=== PATIENT | female | born 1970 | race Caucasian/White ===

== ENCOUNTER 2018-02-10 13:15 | Inpatient (IN) | payer OTHER ==
--- NOTE | 2018-02-10 14:14 | ER Document Report ---
ED Medical Screen (RME) - General Chief Complaint: Upper Abdominal Pain Stated Complaint: STOMACH PAIN Time Seen by Provider: 02/10/18 14:05 Mode of Arrival: Ambulatory Information source: Patient Notes: 47-year-old female history of hysterectomy presents with complaints of right upper quadrant abdominal pain patient notes for the past 2 days she has been having pain. denies nay fevers or chills. denies any diarrhea I have greeted and performed a rapid initial assessment of this patient. A comprehensive ED assessment and evaluation of the patient, analysis of test results and completion of the medical decision making process will be conducted by additional ED providers. PHYSICAL EXAMINATION: GENERAL: Well-appearing, well-nourished and in no acute distress. HEAD: Atraumatic, normocephalic. EYES: Pupils equal round extraocular movements intact, conjunctiva are normal. ENT: Nares patent NECK: Normal range of motion LUNGS: No respiratory distress Musculoskeletal: Normal range of motion NEUROLOGICAL: Normal speech, normal gait. PSYCH: Normal mood, normal affect. SKIN: Warm, Dry, normal turgor, no rashes or lesions noted. TRAVEL OUTSIDE OF THE [place] IN LAST 30 DAYS: No - Related Data Allergies/Adverse Reactions: No Known Allergies Allergy (Verified 02/10/18 13:17) Past Medical History - Social History Frequency of alcohol use: Rare Drug Abuse: None - Past Medical History Cardiac Medical History: Reports: Hx Hypercholesterolemia, Hx Hypertension Endocrine Medical History: Reports: Hx Hypothyroidism Renal/ Medical History: Denies: Hx Peritoneal Dialysis Skin Medical History: Reports Hx Psoriasis Physical Exam - Vital signs Vitals: Temp Pulse Resp BP Pulse Ox 99.5 F 107 H 22 H 124/70 97 02/10/18 13:23 02/10/18 13:23 02/10/18 13:23 02/10/18 13:23 02/10/18 13:23 Course - Vital Signs Vital signs: Temp Pulse Resp BP Pulse Ox 99.5 F 107 H 22 H 124/70 97 02/10/18 13:23 02/10/18 13:23 02/10/18 13:23 02/10/18 13:23 02/10/18 13:23 Doctor's Discharge - Discharge Referrals: MICHAEL HOUSTON DO [Primary Care Provider] - Follow up as needed
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
[2018-02-10] MEDS ORDERED: NORMAL SALINE 1000 ML 500 ML IV ONE (15:04)
[2018-02-10 15:15] LABS: ABSOLUTE BASOPHILS # (AUTO) 0.2 10^3/uL (0.0-0.2); ABSOLUTE LYMPHOCYTES (AUTO) 2.8 10^3/uL (0.5-4.7); ABSOLUTE NEUT (AUTO) 13.8 10^3/uL (1.7-8.2); BASOPHILS % (AUTO) 0.9 % (0-2); EOSINOPHILS % (AUTO) 0.1 % (0-6); HEMATOCRIT 44.3 % (36.0-47.0); HEMOGLOBIN 14.9 g/dL (12.0-15.5); LYMPHOCYTES % (AUTO) 15.6 % (13-45); MEAN CORPUSCULAR HEMOGLOBIN 29.6 pg (27.0-33.4); MEAN CORPUSCULAR HGB CONC 33.7 g/dL (32.0-36.0); MEAN CORPUSCULAR VOLUME 88 fl (80-97); MONOCYTES % (AUTO) 5.4 % (3-13); PLATELET COUNT 325 10^3/uL (150-450); RED BLOOD COUNT 5.06 10^6/uL (3.72-5.28); RED CELL DISTRIBUTION WIDTH 13.2 % (11.5-14.0); TOTAL CELLS COUNTED % (AUTO) 100 %; WHITE BLOOD COUNT 17.7 10^3/uL (4.0-10.5)
[2018-02-10] MEDS ORDERED: DEXAMETHASONE SOD PHOS INJ 10 MG/1 ML VIAL IV ONE (15:18)
[2018-02-10] MEDS ORDERED: CEFTRIAXONE INJ 1000 MG VIAL IV ONE (15:18)
[2018-02-10 15:33] LABS: ALANINE AMINOTRANSFERASE 25 U/L (9-52); ALBUMIN 4.1 g/dL (3.5-5.0); ALKALINE PHOSPHATASE 76 U/L (38-126); ANION GAP 14 (5-19); ASPARTATE AMINO TRANSFERASE 16 U/L (14-36); BILIRUBIN,DIRECT 0.4 mg/dL (0.0-0.4); BILIRUBIN,TOTAL 0.9 mg/dL (0.2-1.3); BLOOD UREA NITROGEN 17 mg/dL (7-20); CALCIUM 9.9 mg/dL (8.4-10.2); CARBON DIOXIDE 28 mmol/L (22-30); CHLORIDE 99 mmol/L (98-107); GLUCOSE 110 mg/dL (75-110); LIPASE 95.9 U/L (23-300); POTASSIUM 4.1 mmol/L (3.6-5.0); SODIUM 140.6 mmol/L (137-145); TOTAL PROTEIN 7.3 g/dL (6.3-8.2)
[2018-02-10 16:09] LABS: APPEARANCE,URINE SLIGHTLY-CLOUDY; BILIRUBIN,URINE NEGATIVE (NEGATIVE); COLOR,URINE YELLOW; GLUCOSE, URINE NEGATIVE (NEGATIVE); KETONES,URINE NEGATIVE (NEGATIVE); LEUKOCYTE ESTERASE,URINE NEGATIVE (NEGATIVE); NITRITE,URINE NEGATIVE (NEGATIVE); PROTEIN,URINE NEGATIVE (NEGATIVE); URINE SPECIFIC GRAVITY 1.024; UROBILINOGEN,URINE NEGATIVE mg/dL (<2.0)
[2018-02-10] MEDS ORDERED: LEVOFLOXACIN 750 MG/D5W RTU 750 MG/150 ML RTUPB IV ONE (16:37)
[2018-02-10] MEDS ORDERED: MORPHINE SULFATE 10 MG/ML INJ IV ONE (16:38)
--- NOTE | 2018-02-10 16:46 | RADIOLOGY REPORT (SQ) ---
EXAM DESCRIPTION: CT ABD/PELVIS WITH IV ONLY COMPLETED DATE/TIME: 02/10/2018 4:13 pm REASON FOR STUDY: epigstric ruq pain COMPARISON: None. TECHNIQUE: CT scan of the abdomen and pelvis performed using helical scanning technique with dynamic intravenous contrast injection. No oral contrast. Images reviewed with lung, soft tissue, and bone windows. Reconstructed coronal and sagittal MPR images reviewed. Delayed images for evaluation of the urinary system also acquired. All images stored on PACS. All CT scanners at this facility use dose modulation, iterative reconstruction, and/or weight based d osing when appropriate to reduce radiation dose to as low as reasonably achievable (ALARA). [facility]: Dose Right [facility]: CareDose [facility]: Dose Right [facility]: Teradose 4D [facility]: LOANZ CONTRAST TYPE AND DOSE: contrast/concentration: Isovue 370.00 mg/ml; Total Contrast Delivered: 98.0 ml; Total Saline Delivered: 40.0 ml RENAL FUNCTION: Creatinine -0.7 BUN=17 RADIATION DOSE: CT Rad equipment meets quality standard of care and radiation dose reduction techniq ues were employed. CTDIvol: 21.1 mGy. DLP: 2608 mGy-cm.. LIMITATIONS: None. FINDINGS: LOWER CHEST: No significant findings. No nodules or infiltrates. LIVER: Normal size. No masses. No dilated ducts. The hepatic and portal veins are patent. SPLEEN: Normal size. No focal lesions. PANCREAS: No masses. No significant calcifications. No adjacent inflammation or peripancreatic fluid collections. Pancreatic duct not dilated. GALLBLADDER: Prior cholecystectomy. ADRENAL GLANDS: No significant masses or asymmetry. RIGHT KIDNEY AND URETER: A heterogenous enhancing fairly well circumscribed 2.4 cm x 2.0 cm mass in the lower pole of the right kidney, Axial image 56, series 3 and Coronal image 44, series 601. Foci of fat are identified within the mass. Considerations for this finding includes a possible angiomyol ipoma, as well as other etiologies. A few very small hypoattenuated right renal lesions may be on a benign basis. No hydronephrosis or hydroureter. LEFT KIDNEY AND URETER: No solid masses. No significant calcifications. No hydronephrosis or hydr oureter. AORTA AND VESSELS: No aneurysm. No dissection. Renal arteries, SMA, celiac without stenosis. RETROPERITONEUM: No retroperitoneal adenopathy, hemorrhage or masses. BOWEL AND PERITONEAL CAVITY: A few scattered colonic diverticulae. Significant haziness to the fat and linear stranding surrounding the hepatic flexure-proximal transverse colon. The wall of the colo n in this area is thickened. Considerations for this finding includes diverticulitis. The possibili ty of other etiology is not entirely excluded. No evidence of invasion or infiltratatiojn of the surr ounding structures. No free fluid. APPENDIX: Normal. PELVIS: Small hypoattenuated structures in the bilateral adnexal regions, may represent ovarian foll icles. No free fluid. Normal bladder. ABDOMINAL WALL: No masses. No hernias. BONES: Marked degenerative disc disease at L3-4. Slight Grade 1 anterolisthesis of L3 on L4. OTHER: Small hiatal hernia. IMPRESSION: 1 Colonic diverticulae. Fairly extensive linear soft tissue stranding and haziness surr ound the fat of the hepatic flexure -proximal transverse colon, these fndings may represent phlegmon. Considerations for these findings include colonic diverticulitis. Correlation and follow-up examin ation after treatment to document for interval resolution. 2. A heterogenous enhancing fairly well-circumscribed enhancing mass in the right kidney contains se veral foci of fat. Considerations for this finding includes possible angiomyolipoma. Correlation to any prior examinations is first suggested, if no old films are available, MRI Renal examination with without. 3. Marked degenerative disc disease at L3-L4. Slight Grade 1 anterolisthesis of L3 on L4. 4. Prior cholecystectomy. 5. Small hiatal hernia. COMMENT: 1. The results of this examination were discussed with emergency department provider on 07/2018 at 16:35 hours. TECHNICAL DOCUMENTATION: JOB ID: [id number] Quality ID # [id number]: Final reports with documentation of one or more dose reduction techniques (e.g., Au tomated exposure control, adjustment of the mA and/or kV according to patient size, use of iterative reconstruction technique) 2010 [employer]- All Rights Reserved Reading location - IP/workstation name: [email or web address]
[2018-02-10] MEDS ORDERED: FENTANYL CITRATE INJ/PF 100 MCG/2 ML AMPUL IV ONE (17:15)
[2018-02-10] MEDS ORDERED: ALBUTEROL SULFATE 0.083% NEB 2.5 MG/3 ML AMPUL NEB PRN (17:56)
[2018-02-10] MEDS ORDERED: ACETAMINOPHEN 325 MG TABLET PO PRN (17:56)
[2018-02-10] MEDS ORDERED: ONDANSETRON 4 MG TAB.RAPDIS PO PRN (17:56)
[2018-02-10] MEDS ORDERED: ONDANSETRON HCL INJ/PF 4 MG/2 ML SDV IV PRN (17:56)
[2018-02-10] MEDS ORDERED: FENTANYL CITRATE INJ/PF 100 MCG/2 ML AMPUL IV PRN (18:09)
--- NOTE | 2018-02-10 18:10 | PDOC H&P ---
History of Present Illness Admission Date/PCP: February 10, 2018 MICHAEL HOUSTON DO Patient complains of: Abdominal pain and nausea History of Present Illness: MALIA ROCHE is a 47 year old female with past medical history of Hypertension Psoriatic arthritis Rheumatoid arthritis Hypertension Past surgical history Cholecystectomy in 2009 Knee and ankle surgery Outpatient medications: Humira Verapamil extended release 180 mg daily Valsartan/HCTZ 320/25 mg daily Celebrex as needed She presented to the emergency room on February 10 complaining of nausea and periumbilical abdominal pain that radiated to the right upper quadrant. This started yesterday. The patient also reports some chills. No vomiting no fever no diarrhea no dysuria no hematochezia or melena. CAT scan of the abdomen and pelvis with IV contrast showed a heterogenous enhancing fairly well-circumscribed 2.4 x 2 cm mass in the lower pole of the right kidney. It also showed fairly extensive linear soft tissue stranding and haziness surrounding the fat of the hepatic flexure around the proximal transverse colon representing a phlegmon and concerning for possible colonic diverticulitis. A surgical consult was requested. Dr. Renee reviewed the CAT scans and does not think any urgent surgical intervention is required. He will be seeing the patient. Past Medical History Cardiac Medical History: Reports: Hyperlipidema, Hypertension Skin Medical History: Reports: Psoriasis Past Surgical History Past Surgical History: Reports: Cholecystectomy, Orthopedic Surgery - Multiple knee surgeries Social History Information Source: Patient Lives with: Spouse/Significant other Smoking Status: Never Smoker Frequency of Alcohol Use: Social Hx Recreational Drug Use: No - Advance Directive Resuscitation Status: Full Code Family History Family History: Arthritis, DM, Hypertension, Malignancy Parental Family History Reviewed: Yes Children Family History Reviewed: Yes Sibling(s) Family History Reviewed.: Yes Medication/Allergy Home Medications: Levothyroxine Sodium [Synthroid 50 Mcg Tablet] mcg PO DAILY 07/07/12 Meloxicam [Mobic 7.5 Mg Tablet] 7.5 mg PO DAILY 07/07/12 Metoprolol Succinate [Toprol Xl 50 mg Tab.sr] 50 mg PO DAILY 07/07/12 Simvastatin [Zocor 20 mg Tablet] 20 mg PO QHS 07/07/12 Ustekinumab [Stelara] SQ 07/07/12 Valsartan/Hydrochlorothiazide [Diovan Hct 160-12.5 mg Tab] 1 tab PO DAILY Allergies/Adverse Reactions: No Known Allergies Allergy (Verified 02/10/18 13:17) Review of Systems Constitutional: PRESENT: chills. ABSENT: fever(s) Eyes: ABSENT: visual disturbances Ears: ABSENT: hearing changes Nose, Mouth, and Throat: ABSENT: sore throat Cardiovascular: ABSENT: chest pain, edema, palpitations Gastrointestinal: PRESENT: abdominal pain, nausea. ABSENT: diarrhea, vomiting Musculoskeletal: ABSENT: joint swelling Integumentary: ABSENT: rash Neurological: ABSENT: focal weakness Psychiatric: ABSENT: hallucinations Endocrine: ABSENT: heat intolerance Hematologic/Lymphatic: ABSENT: easy bleeding Allergic/Immunologic: ABSENT: seasonal rhinorrhea Physical Exam Vital Signs: Temp Pulse Resp BP Pulse Ox 99.5 F 107 H 22 H 124/70 97 02/10/18 13:23 02/10/18 13:23 02/10/18 13:23 02/10/18 13:23 02/10/18 13:23 Intake & Output 02/09/18 02/10/18 02/11/18 06:59 06:59 06:59 Weight 137.5 kg General appearance: PRESENT: obese Head exam: PRESENT: normocephalic Eye exam: PRESENT: PERRLA. ABSENT: scleral icterus Ear exam: PRESENT: normal external ear exam Mouth exam: PRESENT: moist Neck exam: ABSENT: tracheal deviation Respiratory exam: PRESENT: symmetrical, unlabored. ABSENT: crackles, wheezes Cardiovascular exam: PRESENT: RRR. ABSENT: systolic murmur GI/Abdominal exam: PRESENT: normal bowel sounds - Right upper quadrant tenderness, tenderness Rectal exam: PRESENT: deferred Gentrourinary exam: ABSENT: indwelling catheter Extremities exam: ABSENT: calf tenderness, pedal edema Musculoskeletal exam: PRESENT: normal inspection Neurological exam: PRESENT: alert, awake, oriented to person, oriented to place , oriented to time, oriented to situation Psychiatric exam: PRESENT: appropriate affect Skin exam: ABSENT: rash Results Laboratory Results: 02/10/18 14:41 02/10/18 14:41 02/10/18 02/10/18 02/10/18 14:41 14:41 14:41 WBC 17.7 H RBC 5.06 Hgb 14.9 Hct 44.3 MCV 88 MCH 29.6 MCHC 33.7 RDW 13.2 Plt Count 325 Seg Neutrophils % 78.0 Lymphocytes % 15.6 Monocytes % 5.4 Eosinophils % 0.1 Basophils % 0.9 Absolute Neutrophils 13.8 H Absolute Lymphocytes 2.8 Absolute Monocytes 1.0 Absolute Eosinophils 0.0 Absolute Basophils 0.2 Sodium 140.6 Potassium 4.1 Chloride 99 Carbon Dioxide 28 Anion Gap 14 BUN 17 Creatinine 0.84 Est GFR ( Amer) > 60 Est GFR (Non-Af Amer) > 60 Glucose 110 Calcium 9.9 Total Bilirubin 0.9 AST 16 ALT 25 Alkaline Phosphatase 76 Total Protein 7.3 Albumin 4.1 Lipase 95.9 Serum HCG, Qual NEGATIVE Urine Color Urine Appearance Urine pH Ur Specific [place] Urine Protein Urine Glucose (UA) Urine Ketones Urine Blood Urine Nitrite Ur Leukocyte Esterase Urine WBC (Auto) Urine RBC (Auto) 02/10/18 15:37 WBC RBC Hgb Hct MCV MCH MCHC RDW Plt Count Seg Neutrophils % Lymphocytes % Monocytes % Eosinophils % Basophils % Absolute Neutrophils Absolute Lymphocytes Absolute Monocytes Absolute Eosinophils Absolute Basophils Sodium Potassium Chloride Carbon Dioxide Anion Gap BUN Creatinine Est GFR ( Amer) Est GFR (Non-Af Amer) Glucose Calcium Total Bilirubin AST ALT Alkaline Phosphatase Total Protein Albumin Lipase Serum HCG, Qual Urine Color YELLOW Urine Appearance SLIGHTLY-CLOUDY Urine pH 5.0 Ur Specific [place] 1.024 Urine Protein NEGATIVE Urine Glucose (UA) NEGATIVE Urine Ketones NEGATIVE Urine Blood SMALL H Urine Nitrite NEGATIVE Ur Leukocyte Esterase NEGATIVE Urine WBC (Auto) 2 Urine RBC (Auto) 2 Impressions: Abdomen/Pelvis CT 02/10/18 15:29 IMPRESSION: 1 Colonic diverticulae. Fairly extensive linear soft tissue stranding and haziness surround the fat of the hepatic flexure -proximal transverse colon, these fndings may represent phlegmon. Considerations for these findings include colonic diverticulitis. Correlation and follow-up examination after treatment to document for interval resolution. 2. A heterogenous enhancing fairly well-circumscribed enhancing mass in the right kidney contains several foci of fat. Considerations for this finding includes possible angiomyolipoma. Correlation to any prior examinations is first suggested, if no old films are available, MRI Renal examination with without. 3. Marked degenerative disc disease at L3-L4. Slight Grade 1 anterolisthesis of L3 on L4. 4. Prior cholecystectomy. 5. Small hiatal hernia. Assessment & Plan - Diagnosis (1) Acute diverticulitis Is this a current diagnosis for this admission?: Yes Plan: Monitor closely due to risk for decompensation. IV Flagyl and Levaquin. Pain control and antiemetics. Clear liquid diet. (2) Hypertension Is this a current diagnosis for this admission?: Yes Plan: Resume home medications including valsartan and verapamil. Hydrochlorothiazide will be on hold. Monitor blood pressure. (3) Psoriatic arthritis Is this a current diagnosis for this admission?: Yes Plan: Hold Humira (4) Rheumatoid arthritis Is this a current diagnosis for this admission?: Yes Plan: prm analgesics - Time Time Spent: 50 to 70 Minutes
[2018-02-10] MEDS: OXYCODONE-ACETAMINOPHEN 5-325 MG TABLET PO PRN ×2 (19:26→23:51)
[2018-02-10] MEDS ORDERED: ENOXAPARIN SODIUM INJ 40 MG/0.4 ML DISP.SYRIN SUBCUT ONE (20:00)
--- NOTE | 2018-02-10 20:07 | PDOC CONSULTATION ---
Consultation Consult Date: 02/10/18 Consult reason:: Abdominal pain History of Present Illness Admission Date/PCP: 02/10/18 18:30 MICHAEL HOUSTON DO History of Present Illness: MALIA ROCHE is a 47 year old female Presents emergency department complaining approximately 18 hour history of abdominal pain after eating last p.m. Patient denies history of previous episodes, history of trauma or any history of gastrointestinal problems. She is 7 years status post laparoscopic cholecystectomy by also surgical clinic. Patient developed persisting abdominal pain localized into the right upper quadrant. She was seen in the emergency department earlier today where she was found to have localized tenderness, and a leukocytosis with a left shift. She had a CT scan of the abdomen and pelvis with IV no oral contrast which showed inflammation of the right upper quadrant surrounding the proximal transverse colon. No evidence of free air or free fluid phlegmon or any other significant abnormal pathology. Surgery was consulted. The patient was admitted to the hospitalist service for further treatment Past Medical History Past Medical History: Obesity Cardiac Medical History: Reports: Hyperlipidema, Hypertension Endocrine Medical History: Reports: Hypothyroidism Skin Medical History: Reports: Psoriasis Past Surgical History Past Surgical History: Reports: Cholecystectomy, Orthopedic Surgery - Multiple knee surgeries Social History Lives with: Spouse/Significant other Smoking Status: Never Smoker Frequency of Alcohol Use: Social Hx Recreational Drug Use: No Hx Prescription Drug Abuse: No - Advance Directive Resuscitation Status: Full Code Family History Family History: Arthritis, DM, Hypertension, Malignancy Parental Family History Reviewed: Yes Children Family History Reviewed: Yes Sibling(s) Family History Reviewed.: Yes Medication/Allergy Home Medications: Adalimumab [Humira] 40 mg SQ ASDIR PRN 02/10/18 Medroxyprogesterone Acet [Provera 10 Mg Tablet] 10 mg PO DAILY 02/10/18 Valsartan/Hydrochlorothiazide [Diovan Hct 320-25 mg Tablet] 1 each PO DAILY 07/20 Verapamil HCl [Verapamil ER] 180 mg PO DAILY 02/10/18 Allergies/Adverse Reactions: No Known Allergies Allergy (Verified 02/10/18 13:17) Review of Systems Constitutional: ABSENT: chills, fever(s), headache(s), weight gain, weight loss Eyes: ABSENT: visual disturbances Cardiovascular: ABSENT: chest pain, dyspnea on exertion, edema, orthropnea, palpitations Gastrointestinal: PRESENT: as per HPI. ABSENT: abdominal pain, constipation, diarrhea, hematemesis, hematochezia, nausea, vomiting Genitourinary: ABSENT: dysuria, hematuria Physical Exam Vital Signs: Temp Pulse Resp BP Pulse Ox 99.6 F 90 20 137/81 H 99 02/10/18 18:10 02/10/18 18:10 02/10/18 18:10 02/10/18 18:10 02/10/18 18:10 General appearance: PRESENT: mild distress Head exam: PRESENT: normocephalic Eye exam: PRESENT: EOMI Mouth exam: PRESENT: dry mucosa Respiratory exam: PRESENT: clear to auscultation magdy Cardiovascular exam: PRESENT: RRR Pulses: PRESENT: normal carotid pulses GI/Abdominal exam: PRESENT: other - Tender right upper quadrant with mild to moderate guarding. The abdomen is soft there is no obvious hernias. Exam limited due to obesity. Neurological exam: PRESENT: alert, awake, oriented to person, oriented to place Psychiatric exam: PRESENT: anxious Results Impressions: Abdomen/Pelvis CT 02/10/18 15:29 IMPRESSION: 1 Colonic diverticulae. Fairly extensive linear soft tissue stranding and haziness surround the fat of the hepatic flexure -proximal transverse colon, these fndings may represent phlegmon. Considerations for these findings include colonic diverticulitis. Correlation and follow-up examination after treatment to document for interval resolution. 2. A heterogenous enhancing fairly well-circumscribed enhancing mass in the right kidney contains several foci of fat. Considerations for this finding includes possible angiomyolipoma. Correlation to any prior examinations is first suggested, if no old films are available, MRI Renal examination with without. 3. Marked degenerative disc disease at L3-L4. Slight Grade 1 anterolisthesis of L3 on L4. 4. Prior cholecystectomy. 5. Small hiatal hernia. Assessment & Plan - Diagnosis (1) Acute diverticulitis Is this a current diagnosis for this admission?: Yes Plan: The clinical history physical exam findings laboratory value and CT scan, although limited due to absence of oral contrast, most consistent with focal amatory process involving the proximal transverse colon. Acute diverticulitis is statistically most likely etiology but other sources such as inflammatory bowel disease , occult neoplasm, localized contained colonic perforation or other organ inflammation are also possible though less likely Commendations: 1. No clinical indication for operative intervention at this time. 2. Would hold off on clear liquids 3. Agree with intravenous antibiotics. Clinical condition improves, recommend transferring to p.o. antibiotics, then follow-up as an outpatient including complete colonoscopy. If patient does not improve, then a repeat CT scan with oral contrast may be of value. 4. The above assessment and recommendations discussed with patient and her mother. They expressed her consent to proceed. (2) Morbid obesity with BMI of 45.0-49.9, adult Is this a current diagnosis for this admission?: Yes - Time Time Spent: 50 to 70 Minutes Smoking Cessation Education: 3 to 10 minutes Medications reviewed and adjusted accordingly: Yes Anticipated discharge: Home - Inpatient Certification Based on my medical assessment, after consideration of the patient's comorbidities, presenting symptoms, or acuity I expect that the services needed warrant INPATIENT care.: Yes I certify that my determination is in accordance with my understanding of Medicare's requirements for reasonable and necessary INPATIENT services [42 CFR 412.3e].: Yes Medical Necessity: Need For IV Fluids, Need for Pain Control, Need for IV Antibiotics
[2018-02-10] MEDS: RINGERS SOLUTION,LACTATED 1,000 ML IV PRN (20:43)
[2018-02-10] MEDS: METRONIDAZOLE 500 MG/NS RTU 100 ML IV SCH ×2 (20:44→23:51)
[2018-02-10] MEDS: PANTOPRAZOLE SODIUM 40 MG VIAL IV SCH (23:51)
[2018-02-11] MEDS: METRONIDAZOLE 500 MG/NS RTU 100 ML IV SCH ×3 (05:53→18:59)
[2018-02-11 07:03] LABS: ABSOLUTE BASOPHILS # (AUTO) 0.1 10^3/uL (0.0-0.2); ABSOLUTE EOSINOPHILS # (AUTO) 0.1 10^3/uL (0.0-0.6); ABSOLUTE LYMPHOCYTES (AUTO) 3.6 10^3/uL (0.5-4.7); ABSOLUTE MONOCYTES (AUTO) 1.1 10^3/uL (0.1-1.4); ABSOLUTE NEUT (AUTO) 8.1 10^3/uL (1.7-8.2); BASOPHILS % (AUTO) 0.7 % (0-2); LYMPHOCYTES % (AUTO) 27.8 % (13-45); MEAN CORPUSCULAR HEMOGLOBIN 29.9 pg (27.0-33.4); MEAN CORPUSCULAR HGB CONC 34.4 g/dL (32.0-36.0); MEAN CORPUSCULAR VOLUME 87 fl (80-97); MONOCYTES % (AUTO) 8.3 % (3-13); PLATELET COUNT 246 10^3/uL (150-450); RED BLOOD COUNT 4.13 10^6/uL (3.72-5.28); RED CELL DISTRIBUTION WIDTH 13.2 % (11.5-14.0); SEGMENTED NEUTROPHILS % (AUTO) 62.2 % (42-78); TOTAL CELLS COUNTED % (AUTO) 100 %
[2018-02-11 07:23] LABS: ALANINE AMINOTRANSFERASE 32 U/L (9-52); ALKALINE PHOSPHATASE 61 U/L (38-126); ANION GAP 10 (5-19); ASPARTATE AMINO TRANSFERASE 26 U/L (14-36); BILIRUBIN,DIRECT 0.6 mg/dL (0.0-0.4); BILIRUBIN,TOTAL 1.5 mg/dL (0.2-1.3); BLOOD UREA NITROGEN 14 mg/dL (7-20); CALCIUM 8.7 mg/dL (8.4-10.2); CARBON DIOXIDE 28 mmol/L (22-30); CHLORIDE 102 mmol/L (98-107); CHOLESTEROL 144.46 mg/dL (0-200); GLUCOSE 108 mg/dL (75-110); PHOSPHORUS 4.6 mg/dL (2.5-4.5); POTASSIUM 3.6 mmol/L (3.6-5.0); SODIUM 139.8 mmol/L (137-145); TOTAL PROTEIN 5.7 g/dL (6.3-8.2); TRIGLYCERIDES 65 mg/dL (<150)
[2018-02-11 07:25] LABS: HEMOGLOBIN 12.4 g/dL (12.0-15.5)
[2018-02-11 07:34] LABS: DIRECT LDL 75 mg/dL (<100)
[2018-02-11] MEDS ORDERED: DEXTROSE 40% GEL 15 GM TUBE PO PRN ×2 (07:45)
[2018-02-11] MEDS ORDERED: GLUCAGON,HUMAN RECOMB 1 MG INJ SUBCUT PRN (07:45)
[2018-02-11] MEDS ORDERED: DEXTROSE 50%-WATER 25 GM/50 ML DISP.SYRIN IV PRN ×2 (07:45)
[2018-02-11] MEDS ORDERED: VALSARTAN 160 MG TABLET PO SCH (10:00)
[2018-02-11] MEDS: LACTOBACILLUS ACIDOPHILUS 250 MG TAB PO SCH ×2 (10:14→18:59)
[2018-02-11] MEDS: ENOXAPARIN SODIUM INJ 40 MG/0.4 ML DISP.SYRIN SUBCUT SCH (10:14)
[2018-02-11] MEDS: PANTOPRAZOLE SODIUM 40 MG VIAL IV SCH ×2 (10:15→22:03)
[2018-02-11] MEDS: VERAPAMIL HCL 180 MG TABLET.SA PO SCH (10:15)
--- NOTE | 2018-02-11 12:11 | PDOC PROGRESS REPORT ---
Subjective Progress Note for:: 02/11/18 Subjective:: Pain has decreased but still very much present. No nausea or vomiting. Reason For Visit: ACUTE DIVERTICULITIS Physical Exam Vital Signs: Temp Pulse Resp BP Pulse Ox 98.0 F 74 16 119/58 L 97 02/11/18 07:27 02/11/18 07:27 02/11/18 07:27 02/11/18 07:27 02/11/18 07:27 Intake & Output 02/10/18 02/11/18 02/12/18 06:59 06:59 06:59 Weight 139.1 kg General appearance: PRESENT: no acute distress, cooperative Respiratory exam: PRESENT: clear to auscultation magdy Cardiovascular exam: PRESENT: RRR GI/Abdominal exam: PRESENT: other - Soft, moderate tenderness to palpation across her right upper abdomen without peritoneal signs. Results Laboratory Results: 02/11/18 05:46 02/11/18 05:46 02/11/18 02/11/18 02/11/18 05:46 05:46 05:46 WBC 13.0 H RBC 4.13 Hgb 12.4 D Hct 36.0 MCV 87 MCH 29.9 MCHC 34.4 RDW 13.2 Plt Count 246 Seg Neutrophils % 62.2 Lymphocytes % 27.8 Monocytes % 8.3 Eosinophils % 1.0 Basophils % 0.7 Absolute Neutrophils 8.1 Absolute Lymphocytes 3.6 Absolute Monocytes 1.1 Absolute Eosinophils 0.1 Absolute Basophils 0.1 Sodium 139.8 Potassium 3.6 Chloride 102 Carbon Dioxide 28 Anion Gap 10 BUN 14 Creatinine 0.74 Est GFR ( Amer) > 60 Est GFR (Non-Af Amer) > 60 Glucose 108 Calcium 8.7 Phosphorus 4.6 H Magnesium 1.9 Total Bilirubin 1.5 H AST 26 ALT 32 Alkaline Phosphatase 61 Total Protein 5.7 L Albumin 3.0 L Triglycerides 65 Cholesterol 144.46 LDL Cholesterol Direct 75 VLDL Cholesterol 13.0 HDL Cholesterol 50 TSH 2.03 Impressions: Abdomen/Pelvis CT 02/10/18 15:29 IMPRESSION: 1 Colonic diverticulae. Fairly extensive linear soft tissue stranding and haziness surround the fat of the hepatic flexure -proximal transverse colon, these fndings may represent phlegmon. Considerations for these findings include colonic diverticulitis. Correlation and follow-up examination after treatment to document for interval resolution. 2. A heterogenous enhancing fairly well-circumscribed enhancing mass in the right kidney contains several foci of fat. Considerations for this finding includes possible angiomyolipoma. Correlation to any prior examinations is first suggested, if no old films are available, MRI Renal examination with without. 3. Marked degenerative disc disease at L3-L4. Slight Grade 1 anterolisthesis of L3 on L4. 4. Prior cholecystectomy. 5. Small hiatal hernia. Assessment & Plan - Diagnosis (1) Acute diverticulitis Is this a current diagnosis for this admission?: Yes Plan: Inflammatory process involving the right transverse colon. Unclear etiology. Continue IV antibiotics. Appears to be improving. Keep n.p.o. until the tenderness has markedly improved. Patient will need a colonoscopy once the inflammatory process has resolved. Recommend that be done as an outpatient provided the patient does well during this hospital stay.
--- NOTE | 2018-02-11 13:51 | PDOC PROGRESS REPORT ---
Subjective Progress Note for:: 02/11/18 Subjective:: 47-year-old female with a history of hypertension morbid obesity psoriatic and rheumatoid arthritis on Humira. She presented to the hospital with abdominal pain nausea and vomiting. CAT scan showed inflammatory changes in the hepatic flexure of the colon concerning for diverticulitis. There was no abscess. The patient was evaluated by the surgical service and they recommended n.p.o. and IV antibiotics. She continues to have pain and tenderness in the area. Reason For Visit: ACUTE DIVERTICULITIS Physical Exam Vital Signs: Temp Pulse Resp BP Pulse Ox 98.0 F 77 15 119/58 L 97 02/11/18 07:27 02/11/18 12:08 02/11/18 12:08 02/11/18 07:27 02/11/18 07:27 Intake & Output 02/10/18 02/11/18 02/12/18 06:59 06:59 06:59 Weight 139.1 kg General appearance: PRESENT: morbidly obese Head exam: PRESENT: normocephalic Eye exam: ABSENT: scleral icterus Ear exam: PRESENT: normal external ear exam Mouth exam: PRESENT: moist Respiratory exam: PRESENT: symmetrical, unlabored. ABSENT: crackles Cardiovascular exam: PRESENT: RRR GI/Abdominal exam: PRESENT: normal bowel sounds, soft, tenderness - Significant right upper quadrant tenderness Rectal exam: PRESENT: deferred Gentrourinary exam: ABSENT: indwelling catheter Extremities exam: ABSENT: pedal edema Neurological exam: PRESENT: alert, awake, oriented to person, oriented to place , oriented to time, oriented to situation Psychiatric exam: PRESENT: appropriate affect Results Laboratory Results: 02/11/18 05:46 02/11/18 05:46 02/11/18 02/11/18 02/11/18 05:46 05:46 05:46 WBC 13.0 H RBC 4.13 Hgb 12.4 D Hct 36.0 MCV 87 MCH 29.9 MCHC 34.4 RDW 13.2 Plt Count 246 Seg Neutrophils % 62.2 Lymphocytes % 27.8 Monocytes % 8.3 Eosinophils % 1.0 Basophils % 0.7 Absolute Neutrophils 8.1 Absolute Lymphocytes 3.6 Absolute Monocytes 1.1 Absolute Eosinophils 0.1 Absolute Basophils 0.1 Sodium 139.8 Potassium 3.6 Chloride 102 Carbon Dioxide 28 Anion Gap 10 BUN 14 Creatinine 0.74 Est GFR ( Amer) > 60 Est GFR (Non-Af Amer) > 60 Glucose 108 Calcium 8.7 Phosphorus 4.6 H Magnesium 1.9 Total Bilirubin 1.5 H AST 26 ALT 32 Alkaline Phosphatase 61 Total Protein 5.7 L Albumin 3.0 L Triglycerides 65 Cholesterol 144.46 LDL Cholesterol Direct 75 VLDL Cholesterol 13.0 HDL Cholesterol 50 TSH 2.03 Impressions: Abdomen/Pelvis CT 02/10/18 15:29 IMPRESSION: 1 Colonic diverticulae. Fairly extensive linear soft tissue stranding and haziness surround the fat of the hepatic flexure -proximal transverse colon, these fndings may represent phlegmon. Considerations for these findings include colonic diverticulitis. Correlation and follow-up examination after treatment to document for interval resolution. 2. A heterogenous enhancing fairly well-circumscribed enhancing mass in the right kidney contains several foci of fat. Considerations for this finding includes possible angiomyolipoma. Correlation to any prior examinations is first suggested, if no old films are available, MRI Renal examination with without. 3. Marked degenerative disc disease at L3-L4. Slight Grade 1 anterolisthesis of L3 on L4. 4. Prior cholecystectomy. 5. Small hiatal hernia. Assessment & Plan - Diagnosis (1) Acute diverticulitis Is this a current diagnosis for this admission?: Yes Plan: N.p.o. except ice chips Monitor closely due to risk for decompensation. Day 2 of IV Flagyl and Levaquin. Pain control and antiemetics. (2) Hypertension Is this a current diagnosis for this admission?: Yes Plan: Resume home medications including valsartan (dose lowered) and verapamil. Hydrochlorothiazide will be on hold. Monitor blood pressure. (3) Psoriatic arthritis Is this a current diagnosis for this admission?: Yes Plan: Hold Humira (4) Rheumatoid arthritis Is this a current diagnosis for this admission?: Yes Plan: PRN analgesics - Time Time Spent with patient: 25-34 minutes
[2018-02-11] MEDS: RINGERS SOLUTION,LACTATED 1,000 ML IV PRN (14:06)
[2018-02-11] MEDS: OXYCODONE-ACETAMINOPHEN 5-325 MG TABLET PO PRN ×2 (14:11→22:04)
[2018-02-11] MEDS: LEVOFLOXACIN 750 MG/D5W RTU 750 MG/150 ML RTUPB IV SCH (18:59)
[2018-02-12] MEDS: METRONIDAZOLE 500 MG/NS RTU 100 ML IV SCH ×5 (01:29→23:49)
[2018-02-12 05:05] LABS: ABSOLUTE BASOPHILS # (AUTO) 0.1 10^3/uL (0.0-0.2); ABSOLUTE EOSINOPHILS # (AUTO) 0.2 10^3/uL (0.0-0.6); ABSOLUTE LYMPHOCYTES (AUTO) 3.2 10^3/uL (0.5-4.7); ABSOLUTE MONOCYTES (AUTO) 0.6 10^3/uL (0.1-1.4); ABSOLUTE NEUT (AUTO) 5.1 10^3/uL (1.7-8.2); BASOPHILS % (AUTO) 0.6 % (0-2); EOSINOPHILS % (AUTO) 2.2 % (0-6); HEMATOCRIT 36.1 % (36.0-47.0); HEMOGLOBIN 12.2 g/dL (12.0-15.5); LYMPHOCYTES % (AUTO) 35.1 % (13-45); MEAN CORPUSCULAR HEMOGLOBIN 29.7 pg (27.0-33.4); MEAN CORPUSCULAR HGB CONC 33.7 g/dL (32.0-36.0); MEAN CORPUSCULAR VOLUME 88 fl (80-97); MONOCYTES % (AUTO) 6.8 % (3-13); PLATELET COUNT 268 10^3/uL (150-450); RED CELL DISTRIBUTION WIDTH 13.3 % (11.5-14.0); SEGMENTED NEUTROPHILS % (AUTO) 55.3 % (42-78); TOTAL CELLS COUNTED % (AUTO) 100 %; WHITE BLOOD COUNT 9.2 10^3/uL (4.0-10.5)
[2018-02-12 05:24] LABS: ALANINE AMINOTRANSFERASE 38 U/L (9-52); ALBUMIN 2.8 g/dL (3.5-5.0); ALKALINE PHOSPHATASE 63 U/L (38-126); ANION GAP 11 (5-19); ASPARTATE AMINO TRANSFERASE 24 U/L (14-36); BILIRUBIN,DIRECT 0.4 mg/dL (0.0-0.4); BILIRUBIN,TOTAL 0.6 mg/dL (0.2-1.3); BLOOD UREA NITROGEN 11 mg/dL (7-20); CALCIUM 8.5 mg/dL (8.4-10.2); CARBON DIOXIDE 26 mmol/L (22-30); CHLORIDE 104 mmol/L (98-107); GLUCOSE 84 mg/dL (75-110); POTASSIUM 3.7 mmol/L (3.6-5.0); SODIUM 140.8 mmol/L (137-145); TOTAL PROTEIN 5.5 g/dL (6.3-8.2)
[2018-02-12] MEDS ORDERED: VALSARTAN 160 MG TABLET PO SCH (08:45)
[2018-02-12] MEDS ORDERED: VALSARTAN 80 MG TABLET PO ONE (11:00)
[2018-02-12] MEDS: ENOXAPARIN SODIUM INJ 40 MG/0.4 ML DISP.SYRIN SUBCUT SCH (11:02)
[2018-02-12] MEDS: PANTOPRAZOLE SODIUM 40 MG VIAL IV SCH ×2 (11:02→22:23)
[2018-02-12] MEDS: VERAPAMIL HCL 180 MG TABLET.SA PO SCH (11:02)
[2018-02-12] MEDS: LACTOBACILLUS ACIDOPHILUS 250 MG TAB PO SCH ×2 (11:02→18:49)
--- NOTE | 2018-02-12 12:48 | PDOC PROGRESS REPORT ---
Subjective Progress Note for:: 02/12/18 Subjective:: 47-year-old female with a history of hypertension morbid obesity psoriatic and rheumatoid arthritis on Humira. She presented to the hospital with abdominal pain nausea and vomiting. CAT scan showed inflammatory changes in the hepatic flexure of the colon concerning for diverticulitis. There was no abscess. The patient was evaluated by the surgical service and they recommended n.p.o. and IV antibiotics. Her abdominal pain is improved. She is willing to try some clear liquids today. She had a bowel movement this morning. No vomiting Reason For Visit: ACUTE DIVERTICULITIS Physical Exam Vital Signs: Temp Pulse Resp BP Pulse Ox 98.2 F 78 14 121/63 97 02/12/18 10:50 02/12/18 10:50 02/12/18 10:50 02/12/18 10:50 02/12/18 10:50 Intake & Output 02/11/18 02/12/18 02/13/18 06:59 06:59 06:59 Intake Total 1200 15 Balance 1200 15 Weight 139.1 kg 139.3 kg General appearance: PRESENT: morbidly obese Head exam: PRESENT: normocephalic Eye exam: ABSENT: scleral icterus Ear exam: PRESENT: normal external ear exam Mouth exam: PRESENT: moist Neck exam: ABSENT: tracheal deviation Respiratory exam: PRESENT: symmetrical, unlabored. ABSENT: crackles Cardiovascular exam: PRESENT: RRR GI/Abdominal exam: PRESENT: normal bowel sounds, soft, tenderness Rectal exam: PRESENT: deferred Gentrourinary exam: ABSENT: indwelling catheter Extremities exam: ABSENT: calf tenderness, pedal edema Neurological exam: PRESENT: alert, awake, oriented to person, oriented to place , oriented to time, oriented to situation Psychiatric exam: PRESENT: appropriate affect Skin exam: ABSENT: rash Results Laboratory Results: 02/12/18 03:49 02/12/18 03:49 02/12/18 02/12/18 03:49 03:49 WBC 9.2 RBC 4.10 Hgb 12.2 Hct 36.1 MCV 88 MCH 29.7 MCHC 33.7 RDW 13.3 Plt Count 268 Seg Neutrophils % 55.3 Lymphocytes % 35.1 Monocytes % 6.8 Eosinophils % 2.2 Basophils % 0.6 Absolute Neutrophils 5.1 Absolute Lymphocytes 3.2 Absolute Monocytes 0.6 Absolute Eosinophils 0.2 Absolute Basophils 0.1 Sodium 140.8 Potassium 3.7 Chloride 104 Carbon Dioxide 26 Anion Gap 11 BUN 11 Creatinine 0.66 Est GFR ( Amer) > 60 Est GFR (Non-Af Amer) > 60 Glucose 84 Calcium 8.5 Total Bilirubin 0.6 AST 24 ALT 38 Alkaline Phosphatase 63 Total Protein 5.5 L Albumin 2.8 L Impressions: Abdomen/Pelvis CT 02/10/18 15:29 IMPRESSION: 1 Colonic diverticulae. Fairly extensive linear soft tissue stranding and haziness surround the fat of the hepatic flexure -proximal transverse colon, these fndings may represent phlegmon. Considerations for these findings include colonic diverticulitis. Correlation and follow-up examination after treatment to document for interval resolution. 2. A heterogenous enhancing fairly well-circumscribed enhancing mass in the right kidney contains several foci of fat. Considerations for this finding includes possible angiomyolipoma. Correlation to any prior examinations is first suggested, if no old films are available, MRI Renal examination with without. 3. Marked degenerative disc disease at L3-L4. Slight Grade 1 anterolisthesis of L3 on L4. 4. Prior cholecystectomy. 5. Small hiatal hernia. Assessment & Plan - Diagnosis (1) Acute diverticulitis Is this a current diagnosis for this admission?: Yes Plan: Clear liquids. Monitor closely due to risk for decompensation. Day 2 of IV Flagyl and Levaquin. Pain control and antiemetics. (2) Hypertension Is this a current diagnosis for this admission?: Yes Plan: Valsartan dose lowered to 80 mg given borderline low blood pressures. Continue verapamil. Hydrochlorothiazide on hold. Monitor blood pressure. (3) Psoriatic arthritis Is this a current diagnosis for this admission?: Yes Plan: Hold Humira (4) Rheumatoid arthritis Is this a current diagnosis for this admission?: Yes Plan: PRN analgesics - Time Time Spent with patient: 25-34 minutes
[2018-02-12] MEDS: OXYCODONE-ACETAMINOPHEN 5-325 MG TABLET PO PRN (18:48)
[2018-02-12] MEDS: LEVOFLOXACIN 750 MG/D5W RTU 750 MG/150 ML RTUPB IV SCH (18:49)
--- NOTE | 2018-02-12 21:29 | PDOC PROGRESS REPORT ---
Subjective Progress Note for:: 02/12/18 Subjective:: This is a 47-year-old female with CT diagnosed colitis of the proximal transverse colon. The patient reports that overall her pain is improving. She was given clear liquids today, and did have some discomfort. The patient denies fevers, chills, chest pain, shortness of breath, dizziness, blurry vision , orthostasis, fatigue, or malaise. Reason For Visit: ACUTE DIVERTICULITIS Physical Exam Vital Signs: Temp Pulse Resp BP Pulse Ox 98.3 F 82 12 124/69 95 02/12/18 15:22 02/12/18 15:22 02/12/18 15:22 02/12/18 15:22 02/12/18 15:22 Intake & Output 02/11/18 02/12/18 02/13/18 06:59 06:59 06:59 Intake Total 1200 1215 Balance 1200 1215 Weight 139.1 kg 139.3 kg General appearance: PRESENT: no acute distress Head exam: PRESENT: atraumatic, normocephalic Eye exam: PRESENT: EOMI, PERRLA. ABSENT: scleral icterus Mouth exam: PRESENT: moist, neck supple Teeth exam: ABSENT: poor dentation Neck exam: ABSENT: lymphadenopathy, meningismus, tenderness, thyromegaly, tracheal deviation Respiratory exam: ABSENT: accessory muscle use, chest wall tenderness, tachypnea , wheezes Pulses: PRESENT: normal radial pulses Vascular exam: PRESENT: normal capillary refill. ABSENT: pallor GI/Abdominal exam: PRESENT: soft, tenderness - Epigastrium. ABSENT: guarding, rebound Extremities exam: ABSENT: tenderness Musculoskeletal exam: PRESENT: normal inspection Neurological exam: PRESENT: alert, awake, oriented to person, oriented to place , oriented to time, oriented to situation, CN II-XII grossly intact. ABSENT: motor sensory deficit Psychiatric exam: ABSENT: agitated, anxious, depressed Skin exam: ABSENT: cyanosis, erythema, jaundice Results Laboratory Results: 02/12/18 03:49 02/12/18 03:49 02/12/18 02/12/18 03:49 03:49 WBC 9.2 RBC 4.10 Hgb 12.2 Hct 36.1 MCV 88 MCH 29.7 MCHC 33.7 RDW 13.3 Plt Count 268 Seg Neutrophils % 55.3 Lymphocytes % 35.1 Monocytes % 6.8 Eosinophils % 2.2 Basophils % 0.6 Absolute Neutrophils 5.1 Absolute Lymphocytes 3.2 Absolute Monocytes 0.6 Absolute Eosinophils 0.2 Absolute Basophils 0.1 Sodium 140.8 Potassium 3.7 Chloride 104 Carbon Dioxide 26 Anion Gap 11 BUN 11 Creatinine 0.66 Est GFR ( Amer) > 60 Est GFR (Non-Af Amer) > 60 Glucose 84 Calcium 8.5 Total Bilirubin 0.6 AST 24 ALT 38 Alkaline Phosphatase 63 Total Protein 5.5 L Albumin 2.8 L Impressions: Abdomen/Pelvis CT 02/10/18 15:29 IMPRESSION: 1 Colonic diverticulae. Fairly extensive linear soft tissue stranding and haziness surround the fat of the hepatic flexure -proximal transverse colon, these fndings may represent phlegmon. Considerations for these findings include colonic diverticulitis. Correlation and follow-up examination after treatment to document for interval resolution. 2. A heterogenous enhancing fairly well-circumscribed enhancing mass in the right kidney contains several foci of fat. Considerations for this finding includes possible angiomyolipoma. Correlation to any prior examinations is first suggested, if no old films are available, MRI Renal examination with without. 3. Marked degenerative disc disease at L3-L4. Slight Grade 1 anterolisthesis of L3 on L4. 4. Prior cholecystectomy. 5. Small hiatal hernia. Assessment & Plan - Diagnosis (1) Acute diverticulitis Is this a current diagnosis for this admission?: Yes (2) Morbid obesity with BMI of 45.0-49.9, adult Is this a current diagnosis for this admission?: Yes - Plan Summary Plan Summary: This is a 47-year-old female with colitis at the hepatic flexure. Her symptoms are improving. Continue antibiotics. I will not advance her diet, as she has had abdominal pain after taking liquids. Hopefully by tomorrow her pain will have lessened, and her diet may be advanced.
[2018-02-13 05:04] LABS: ABSOLUTE BASOPHILS # (AUTO) 0.1 10^3/uL (0.0-0.2); ABSOLUTE EOSINOPHILS # (AUTO) 0.2 10^3/uL (0.0-0.6); ABSOLUTE MONOCYTES (AUTO) 0.6 10^3/uL (0.1-1.4); BASOPHILS % (AUTO) 0.8 % (0-2); EOSINOPHILS % (AUTO) 2.4 % (0-6); HEMATOCRIT 35.5 % (36.0-47.0); HEMOGLOBIN 12.1 g/dL (12.0-15.5); LYMPHOCYTES % (AUTO) 38.2 % (13-45); MEAN CORPUSCULAR HEMOGLOBIN 30.1 pg (27.0-33.4); MEAN CORPUSCULAR HGB CONC 34.2 g/dL (32.0-36.0); MEAN CORPUSCULAR VOLUME 88 fl (80-97); PLATELET COUNT 264 10^3/uL (150-450); RED BLOOD COUNT 4.03 10^6/uL (3.72-5.28); RED CELL DISTRIBUTION WIDTH 12.8 % (11.5-14.0); SEGMENTED NEUTROPHILS % (AUTO) 50.6 % (42-78); TOTAL CELLS COUNTED % (AUTO) 100 %; WHITE BLOOD COUNT 7.9 10^3/uL (4.0-10.5)
[2018-02-13 05:30] LABS: ANION GAP 10 (5-19); BLOOD UREA NITROGEN 8 mg/dL (7-20); CALCIUM 8.6 mg/dL (8.4-10.2); CARBON DIOXIDE 26 mmol/L (22-30); CHLORIDE 107 mmol/L (98-107); GLUCOSE 80 mg/dL (75-110); POTASSIUM 3.8 mmol/L (3.6-5.0); SODIUM 142.7 mmol/L (137-145)
[2018-02-13] MEDS: METRONIDAZOLE 500 MG/NS RTU 100 ML IV SCH ×3 (06:02→18:02)
[2018-02-13] MEDS ORDERED: VALSARTAN 80 MG TABLET PO SCH (10:00)
[2018-02-13] MEDS ORDERED: ONDANSETRON 4 MG TAB.RAPDIS PO PRN (10:30)
[2018-02-13] MEDS ORDERED: ONDANSETRON HCL INJ/PF 4 MG/2 ML SDV IV PRN (10:30)
[2018-02-13] MEDS: ENOXAPARIN SODIUM INJ 40 MG/0.4 ML DISP.SYRIN SUBCUT SCH (11:02)
[2018-02-13] MEDS: LACTOBACILLUS ACIDOPHILUS 250 MG TAB PO SCH ×2 (11:15→18:02)
[2018-02-13] MEDS: PANTOPRAZOLE SODIUM 40 MG VIAL IV SCH (11:15)
[2018-02-13] MEDS: VERAPAMIL HCL 180 MG TABLET.SA PO SCH (11:16)
--- NOTE | 2018-02-13 11:55 | PDOC PROGRESS REPORT ---
Subjective Progress Note for:: 02/13/18 Subjective:: Feels much better. Decreased abdominal pain. Reason For Visit: ACUTE DIVERTICULITIS Physical Exam Vital Signs: Temp Pulse Resp BP Pulse Ox 98.3 F 82 12 124/69 95 02/12/18 15:22 02/12/18 15:22 02/12/18 15:22 02/12/18 15:22 02/12/18 15:22 Intake & Output 02/12/18 02/13/18 02/14/18 06:59 06:59 06:59 Intake Total 1200 1333 Balance 1200 1333 Weight 139.3 kg 139.4 kg General appearance: PRESENT: no acute distress, cooperative Respiratory exam: PRESENT: clear to auscultation magdy Cardiovascular exam: PRESENT: RRR GI/Abdominal exam: PRESENT: other - Soft, nondistended, mild right upper quadrant abdominal tenderness without peritoneal signs. Much improved from couple of days ago. Results Laboratory Results: 02/13/18 03:46 02/13/18 03:46 02/13/18 02/13/18 03:46 03:46 WBC 7.9 RBC 4.03 Hgb 12.1 Hct 35.5 L MCV 88 MCH 30.1 MCHC 34.2 RDW 12.8 Plt Count 264 Seg Neutrophils % 50.6 Lymphocytes % 38.2 Monocytes % 8.0 Eosinophils % 2.4 Basophils % 0.8 Absolute Neutrophils 4.0 Absolute Lymphocytes 3.0 Absolute Monocytes 0.6 Absolute Eosinophils 0.2 Absolute Basophils 0.1 Sodium 142.7 Potassium 3.8 Chloride 107 Carbon Dioxide 26 Anion Gap 10 BUN 8 Creatinine 0.66 Est GFR ( Amer) > 60 Est GFR (Non-Af Amer) > 60 Glucose 80 Calcium 8.6 Impressions: Abdomen/Pelvis CT 02/10/18 15:29 IMPRESSION: 1 Colonic diverticulae. Fairly extensive linear soft tissue stranding and haziness surround the fat of the hepatic flexure -proximal transverse colon, these fndings may represent phlegmon. Considerations for these findings include colonic diverticulitis. Correlation and follow-up examination after treatment to document for interval resolution. 2. A heterogenous enhancing fairly well-circumscribed enhancing mass in the right kidney contains several foci of fat. Considerations for this finding includes possible angiomyolipoma. Correlation to any prior examinations is first suggested, if no old films are available, MRI Renal examination with without. 3. Marked degenerative disc disease at L3-L4. Slight Grade 1 anterolisthesis of L3 on L4. 4. Prior cholecystectomy. 5. Small hiatal hernia. Assessment & Plan - Diagnosis (1) Acute diverticulitis Is this a current diagnosis for this admission?: Yes Plan: Responding well with antibiotics. Will advance diet.
--- NOTE | 2018-02-13 15:26 | PDOC PROGRESS REPORT ---
Subjective Progress Note for:: 02/13/18 Subjective:: 47-year-old female with a history of hypertension morbid obesity psoriatic and rheumatoid arthritis on Humira. She presented to the hospital with abdominal pain nausea and vomiting. CAT scan showed inflammatory changes in the hepatic flexure of the colon concerning for diverticulitis. There was no abscess. The patient was evaluated by the surgical service and they recommended n.p.o. and IV antibiotics. No complaints, pain is slightly better. No appetite. Reason For Visit: ACUTE DIVERTICULITIS Physical Exam Vital Signs: Temp Pulse Resp BP Pulse Ox 98.3 F 82 12 124/69 95 02/12/18 15:22 02/12/18 15:22 02/12/18 15:22 02/12/18 15:22 02/12/18 15:22 Intake & Output 02/12/18 02/13/18 02/14/18 06:59 06:59 06:59 Intake Total 1200 1333 Balance 1200 1333 Weight 139.3 kg 139.4 kg General appearance: PRESENT: morbidly obese Head exam: PRESENT: normocephalic Ear exam: PRESENT: normal external ear exam Respiratory exam: PRESENT: symmetrical, unlabored GI/Abdominal exam: PRESENT: normal bowel sounds, soft, tenderness - tenderness in RUQ better Rectal exam: PRESENT: deferred Extremities exam: ABSENT: pedal edema Neurological exam: PRESENT: alert, awake, oriented to person, oriented to place , oriented to time, oriented to situation Psychiatric exam: PRESENT: appropriate affect Skin exam: ABSENT: rash Results Laboratory Results: 02/13/18 03:46 02/13/18 03:46 02/13/18 02/13/18 03:46 03:46 WBC 7.9 RBC 4.03 Hgb 12.1 Hct 35.5 L MCV 88 MCH 30.1 MCHC 34.2 RDW 12.8 Plt Count 264 Seg Neutrophils % 50.6 Lymphocytes % 38.2 Monocytes % 8.0 Eosinophils % 2.4 Basophils % 0.8 Absolute Neutrophils 4.0 Absolute Lymphocytes 3.0 Absolute Monocytes 0.6 Absolute Eosinophils 0.2 Absolute Basophils 0.1 Sodium 142.7 Potassium 3.8 Chloride 107 Carbon Dioxide 26 Anion Gap 10 BUN 8 Creatinine 0.66 Est GFR ( Amer) > 60 Est GFR (Non-Af Amer) > 60 Glucose 80 Calcium 8.6 Impressions: Abdomen/Pelvis CT 02/10/18 15:29 IMPRESSION: 1 Colonic diverticulae. Fairly extensive linear soft tissue stranding and haziness surround the fat of the hepatic flexure -proximal transverse colon, these fndings may represent phlegmon. Considerations for these findings include colonic diverticulitis. Correlation and follow-up examination after treatment to document for interval resolution. 2. A heterogenous enhancing fairly well-circumscribed enhancing mass in the right kidney contains several foci of fat. Considerations for this finding includes possible angiomyolipoma. Correlation to any prior examinations is first suggested, if no old films are available, MRI Renal examination with without. 3. Marked degenerative disc disease at L3-L4. Slight Grade 1 anterolisthesis of L3 on L4. 4. Prior cholecystectomy. 5. Small hiatal hernia. Assessment & Plan - Diagnosis (1) Acute diverticulitis Is this a current diagnosis for this admission?: Yes Plan: Clear liquid diet as tolerated Monitor closely due to risk for decompensation. Day 3 of IV Flagyl and Levaquin. Pain control and antiemetics. (2) Hypertension Is this a current diagnosis for this admission?: Yes Plan: Valsartan dose lowered to 80 mg given borderline low blood pressures. Continue verapamil. Hydrochlorothiazide on hold. Monitor blood pressure. (3) Psoriatic arthritis Is this a current diagnosis for this admission?: Yes Plan: Hold Humira (4) Rheumatoid arthritis Is this a current diagnosis for this admission?: Yes Plan: PRN analgesics - Time Time Spent with patient: 25-34 minutes
[2018-02-13] MEDS: LEVOFLOXACIN 750 MG/D5W RTU 750 MG/150 ML RTUPB IV SCH (18:02)
[2018-02-13 22:06] VITALS: BP 107/48
--- NOTE | 2018-02-14 12:55 | DISCHARGE SUMMARY E ---
Discharge Summary NAME: MALIA ROCHE : 1970 AGE: 47Y ADMITTED: 02/10/2018 DISCHARGED: 02/13/2018 FINAL DIAGNOSIS: Focal colitis of the transverse colon. Right kidney mass HOSPITAL COURSE: Patient was treated with initially bowel rest and antibiotics. She had good response with marked improvement of her abdominal pain and tenderness. She had minimal pain and tenderness at the time of discharge. Patient is now being discharged to home in good condition. Pt was noted with renal mass on ct at admission. She is referred to urology as outpt for further evaluation of this mass. DISCHARGE INSTRUCTIONS: She will follow up with [facility] in 2 weeks. Outpatient urology appointment to evaluation of renal mass. She is encouraged to stay active at home. She may follow a regular diet. DISCHARGE MEDICATIONS: 1. Levaquin 500 mg daily. 2. Flagyl 500 mg t.i.d. Both of these medications were written for 1 week. She may resume her home medications. ADDITIONAL MEDICATIONS: 1. Colace 100 mg 1 p.o. b.i.d. 2. Percocet 1 p.o. q. 4 hours p.r.n. pain. She will need a colonoscopy as an outpatient, which will be arranged through our office when she comes in for a followup. Also, will need to make sure patient has outpt evaluation by urologist concerning renal mass. DICTATING PHYSICIAN: KYLE WALDRON M.D. [id number] PHY#: [id number] ID: [id number] JOB#: [id number] ACCT: [id number] cc:Shantell JADE F.N.P. > MTDD
--- NOTE | 2018-02-14 18:19 | PDOC DISCHARGE SUMMARY ---
General - Admit/Disc Date/PCP Admission Date/Primary Care Provider: 02/10/18 18:30 MICHAEL HOUSTON DO Discharge Date: 02/13/18 - Discharge Diagnosis (1) Acute diverticulitis Is this a current diagnosis for this admission?: Yes (2) Hypertension Is this a current diagnosis for this admission?: Yes (3) Psoriatic arthritis Is this a current diagnosis for this admission?: Yes (4) Rheumatoid arthritis Is this a current diagnosis for this admission?: Yes - Additional Information Resuscitation Status: Full Code Discharge Diet: As Tolerated Discharge Activity: Activity As Tolerated Prescriptions: Docusate Sodium [Colace 100 mg Capsule] 100 mg PO DAILY #30 capsule Levofloxacin [Levaquin 500 mg Tablet] 500 mg PO DAILY #7 tablet Metronidazole [Flagyl 500 mg Tablet] 500 mg PO TID #21 tablet Oxycodone HCl/Acetaminophen [Percocet 5-325 mg Tablet] 1 tab PO ASDIR PRN #15 tablet PRN Reason: Home Medications: Adalimumab [Humira Pen] 40 mg SQ ASDIR PRN 02/10/18 Medroxyprogesterone Acet [Provera 10 mg Tablet] 10 mg PO DAILY 02/10/18 Valsartan/Hydrochlorothiazide [Diovan Hct 320-25 mg Tablet] 1 each PO DAILY 07/20 Verapamil HCl [Verapamil ER] 180 mg PO DAILY 02/10/18 Docusate Sodium [Colace 100 mg Capsule] 100 mg PO DAILY #30 capsule 02/13/18 Levofloxacin [Levaquin 500 mg Tablet] 500 mg PO DAILY #7 tablet 02/13/18 Metronidazole [Flagyl 500 mg Tablet] 500 mg PO TID #21 tablet 02/13/18 Oxycodone HCl/Acetaminophen [Percocet 5-325 mg Tablet] 1 tab PO ASDIR PRN #15 tablet 02/13/18 History of Present Illness History of Present Illness: MALIA ROCHE is a 47 year old female with past medical history of Hypertension Psoriatic arthritis Rheumatoid arthritis Hypertension Past surgical history Cholecystectomy in 2009 Knee and ankle surgery Outpatient medications: Humira Verapamil extended release 180 mg daily Valsartan/HCTZ 320/25 mg daily Celebrex as needed She presented to the emergency room on February 10 complaining of nausea and periumbilical abdominal pain that radiated to the right upper quadrant. This started yesterday. The patient also reports some chills. No vomiting no fever no diarrhea no dysuria no hematochezia or melena. CAT scan of the abdomen and pelvis with IV contrast showed a heterogenous enhancing fairly well-circumscribed 2.4 x 2 cm mass in the lower pole of the right kidney. It also showed fairly extensive linear soft tissue stranding and haziness surrounding the fat of the hepatic flexure around the proximal transverse colon representing a phlegmon and concerning for possible colonic diverticulitis. A surgical consult was requested. Dr. Renee reviewed the CAT scans and did not think any urgent surgical intervention is required. The patient was kept n.p.o. and started on IV fluids and antibiotics. The surgical service continue to follow her during her hospital stay. On February 13 her diet was advanced by Dr. Walton. He saw her later in the day and discharged her home. Hospital Course Hospital Course: The rest of her hospital stay was unremarkable. Physical Exam Vital Signs: Temp Pulse Resp BP Pulse Ox 98.0 F 74 12 107/48 L 98 02/13/18 20:00 02/13/18 20:00 02/13/18 20:00 02/13/18 20:00 02/13/18 20:00 Intake & Output 02/13/18 02/14/18 02/15/18 06:59 06:59 06:59 Intake Total 1333 1600 Balance 1333 1600 Weight 139.4 kg Additional comments: I did not discharge the patient. Results Laboratory Results: 02/13/18 03:46 02/13/18 03:46 Impressions: Abdomen/Pelvis CT 02/10/18 15:29 IMPRESSION: 1 Colonic diverticulae. Fairly extensive linear soft tissue stranding and haziness surround the fat of the hepatic flexure -proximal transverse colon, these fndings may represent phlegmon. Considerations for these findings include colonic diverticulitis. Correlation and follow-up examination after treatment to document for interval resolution. 2. A heterogenous enhancing fairly well-circumscribed enhancing mass in the right kidney contains several foci of fat. Considerations for this finding includes possible angiomyolipoma. Correlation to any prior examinations is first suggested, if no old films are available, MRI Renal examination with without. 3. Marked degenerative disc disease at L3-L4. Slight Grade 1 anterolisthesis of L3 on L4. 4. Prior cholecystectomy. 5. Small hiatal hernia. Qualifiers - * PATIENT BEING DISCHARGED WITH ANY OF THE FOLLOWING DIAGNOSIS: No
== END 2018-02-13 21:22 | disposition home or self-care (01) | DRG 392 ==
LOC: ER 13:15 → EH 18:30 → 5 21:55
PROVIDERS: ADMIT Internal Medicine; ATTEND Internal Medicine
DX: K57.32 Diverticulitis of large intestine without perforation or abscess without bleeding (principal); Z68.42 Body mass index [BMI] 45.0-49.9, adult; I10 Essential (primary) hypertension; E78.00 Pure hypercholesterolemia, unspecified; E03.9 Hypothyroidism, unspecified; M06.9 Rheumatoid arthritis, unspecified; L40.50 Arthropathic psoriasis, unspecified; E66.01 Morbid (severe) obesity due to excess calories
CPT/HCPCS: 36415; 74177; 80048; 80053; 80061; 81001; 83036; 83690; 83735; 84100; 84443; 84703; 85025; 87040; 87086; 96361; 96365; 96375; 99285; J1650; J1956; J3010; J3490; J7030; J7120; S0164

== ENCOUNTER 2018-03-26 11:19 | Day surgery (SDC) | payer OTHER ==
[2018-03-19 13:29] LABS: HEMATOCRIT 41.7 % (36.0-47.0); HEMOGLOBIN 14.4 g/dL (12.0-15.5); MEAN CORPUSCULAR HEMOGLOBIN 30.2 pg (27.0-33.4); MEAN CORPUSCULAR HGB CONC 34.5 g/dL (32.0-36.0); MEAN CORPUSCULAR VOLUME 87 fl (80-97); PLATELET COUNT 317 10^3/uL (150-450); RED BLOOD COUNT 4.78 10^6/uL (3.72-5.28); RED CELL DISTRIBUTION WIDTH 13.3 % (11.5-14.0); WHITE BLOOD COUNT 10.8 10^3/uL (4.0-10.5)
[~2018-03-26 11:19] MED LIST: ACETAMINOPHEN 325 MG TABLET PO PRN; LACTATED RINGERS 1000 ML IV PRN
[2018-03-26] MEDS ORDERED: MIDAZOLAM 2 MG/2 ML INJ ONE (14:06)
[2018-03-26] MEDS ORDERED: PROPOFOL INJ 200 MG/20 ML VIAL IV ONE (14:07)
--- NOTE | 2018-03-26 15:41 | Discharge Summary ---
Discharge Summary (SDC) - Discharge Final Diagnosis: 1. 1. Colon diverticulosis 2. Left colon polyp Date of Surgery: 03/26/18 Discharge Date: 03/26/18 Condition: Good Treatment or Instructions: [address] [id number] POST ENDOSCOPY DISCHARGE INSTRUCTIONS 1. Diet: Start clear liquids that a regular diet as tolerated. 2. Resume all preoperative medications. All oral anticoagulants and aspirins can be resumed 24 hours after procedure. 3. If a polypectomy was performed some bleeding per rectum may occur. This should stop within 3 days. If not, please contact the office. 4. If you had a colonoscopy you may experience some bloating and delayed return of normal bowel function for several days, your regular bowel movement pattern should resume within a week. 5. Please contact [facility] at to make an appointment with Dr. Renee for 1 to 3 weeks following procedure. 6. If you have any questions or concerns regarding your care,treatment plan or follow up, please contact our office. 7. Per clinical guidelines we recommend you undergo a repeat colonoscopy in three years. Referrals: MICHAEL HOUSTON DO [Primary Care Provider] - Discharge Diet: As Tolerated Discharge Activity: Activity As Tolerated Home Care Assistance: None Needed Report the Following to Your Physician Immediately: Shortness of Breath, Increase in Pain, Fever over 101 Degrees
--- NOTE | 2018-03-26 15:45 | Operative Report ---
Operative Report DATE OF SURGERY: 03/26/18 PREOPERATIVE DIAGNOSIS: History of colonic inflammation rule out perforation POSTOPERATIVE DIAGNOSIS: 1. Scattered sigmoid diverticulosis. 2. Sessile left colonic polyp OPERATION: 1. Total colonoscopy to cecum. 2. Rectosigmoid colon polypectomy SURGEON: HERBIE NESBITT ANESTHESIA: LMAC TISSUE REMOVED OR ALTERED: Polyp COMPLICATIONS: None ESTIMATED BLOOD LOSS: Scant INTRAOPERATIVE FINDINGS: See below PROCEDURE: Obtaining informed consent the patient was taken from the preoperative holding area to the main endoscopy suite where monitoring devices were attached to the patient. Plan and surgical timeout were conducted The patient was placed in the left lateral decubitus position with knees to chest. A perianal examination was performed. There was no visible or palpable anorectal pathology. Sphincter tone was felt to be normal. The flexible adult colonoscope was advanced through the anal rectal canal, all the way to the cecum. Visualization of the cecum was achieved and the ileocecal valve, the appendiceal orifice and transillumination of the anterior abdominal wall. This was an excellent study on the well-prepped bowel. The colonoscope was withdrawn slowly and methodically checked and the mucosa carefully. There was no evidence of tumor, stricture, bleeding; was a sessile polyp of the rectosigmoid colon approximately 20 cm from anal verge. It was removed with a hot snare device, medium strength with the specimen retrieved. The polypectomy site looked fine. There were scattered diverticulosis of the colon. There was no evidence of stricture or luminal abnormality at the level of transverse colon. The scope was slowly withdrawn through the anal rectal canal. Complete visualization of the rectum was achieved with photodocumentation. The scope was withdrawn to the patient's anus. The patient tolerated the procedure well and was taken to the recovery area in stable condition. Per surveillance guidelines, patient be appropriate candidate for follow-up colonoscopy in 3 years.
[2018-03-26 17:11] VITALS: BP 136/89
== END 2018-03-26 16:50 | disposition home or self-care (01) ==
LOC: OROUT 11:19
PROVIDERS: ATTEND Surgery
DX: K57.30 Diverticulosis of large intestine without perforation or abscess without bleeding (principal); D12.6 Benign neoplasm of colon, unspecified; G47.30 Sleep apnea, unspecified; I10 Essential (primary) hypertension; M06.9 Rheumatoid arthritis, unspecified; L40.50 Arthropathic psoriasis, unspecified; Z79.899 Other long term (current) drug therapy; Z79.1 Long term (current) use of non-steroidal anti-inflammatories (NSAID)
CPT/HCPCS: 45385; 36415 ×2; 84132; 85027; 81025; 88305 ×2; J2250; J2704; 811

== ENCOUNTER → 2018-07-31 | Outpatient (CLI) | payer OTHER ==
--- NOTE | 2018-07-31 16:32 | WOMENS IMAGING REPORT ---
EXAM DESCRIPTION: 3D SCREENING MAMMO BILAT COMPLETED DATE/TIME: 07/31/2018 2:45 pm REASON FOR STUDY: SCREENING MAMMO Z12.31 ENCNTR SCREEN MAMMOGRAM FOR MALIGNANT NEOPLASM OF YULISSA COMPARISON: 08/29/2016 and 06/23/2015. TECHNIQUE: Standard craniocaudal and mediolateral oblique views of each breast recorded using digita l acquisition and breast tomosynthesis. LIMITATIONS: None. FINDINGS: Findings present which are benign by mammographic criteria. No suspicious masses, calcifi cations or architectural distortion. Pertinent benign findings: Stable mass in the left breast with biopsy clip. Read with the assistance of CAD. .[facility] - R2 Cenova Version 1.3 .[facility] - R2 Cenova Version 1.3 .[facility] - R2 Cenova Version 2.4 .[facility] - R2 Cenova Version 2.4 .[facility] - R2 Enrollment Representative Version 9.2 Benign mammographic findings may include one or more of the following: Smooth masses, popcorn/rim/co arse calcifications, asymmetries, post-procedure changes, and lesions with long-standing stability. IMPRESSION: BENIGN MAMMOGRAPHIC FINDINGS. BIRADS 2 BREAST DENSITY: b. There are scattered areas of fibroglandular density. BIRAD: 2 BENIGN FINDING(S) RECOMMENDATION: RECOMMENDATION: ROUTINE SCREENING COMMENT: The patient has been notified of the results by letter per SA requirements. Additional no tification policies are in place for contacting patient with suspicious or incomplete findings. Quality ID #225: The [employer] recommends an annual screening mammogram for women aged 40 years or over. This facility utilizes a reminder system to ensure that all patients receive reminder letters, and/or direct phone calls for appointments. This includes reminders for routine scr eening mammograms, diagnostic mammograms, or other Breast Imaging Interventions when appropriate. Th is patient will be placed in the appropriate reminder system. The [employer] (ACR) has developed recommendations for screening MRI of the breast s in certain patient populations, to be used in conjunction with mammography. Breast MRI surveillanc e may be appropriate for women with more than 20% lifetime risk of developing breast cancer as deter mined by genetic testing, significant family history of the disease, or history of mantle radiation f or Hodgkins Disease. ACR Practice Guidelines 2008. DBT Technology DBT is a type of tomographic mammography. With conventional mammography, overlapping breast tissue ma y make lesions difficult to detect, even with good compression. DBT uses an x-ray tube that rotates a round the breast, taking images at different angles. These images are then combined to create thin sl ices of the breast that the radiologist can view as a 3D reconstruction. The tipple.me unit can perform full-field digital mammograms (2D imaging); or DBT (3D imaging); or both, in a combination mode that quickly performs both the mammogram and the tomosynthesis scan while the breast is still compressed. PQRS 6045F: Fluoroscopic imaging is not utilized for breast tomosynthesis. TECHNICAL DOCUMENTATION: FINDING NUMBER: (1) ASSESSMENT: (1) JOB ID: [id number] [employer]- All Rights Reserved Reading location - IP/workstation name: [email or web address]
== END ==
LOC: WI 14:20
PROVIDERS: ATTEND Specialist
DX: Z12.31 Encounter for screening mammogram for malignant neoplasm of breast (principal)
CPT/HCPCS: 77063; 77067

== ENCOUNTER → 2019-08-10 | Outpatient (CLI) | payer OTHER ==
--- NOTE | 2019-08-10 07:58 | WOMENS IMAGING REPORT ---
EXAM DESCRIPTION: 3D SCREENING MAMMO BILAT COMPLETED DATE/TIME: 08/10/2019 7:36 am REASON FOR STUDY: Z12.31 ENCOUNTER FOR SCREENING MAMMOGRAM FOR MALIGNANT NEOPLASM OF BREAST Z12.31 ENCNTR SCREEN MAMMOGRAM FOR MALIGNANT NEOPLASM OF YULISSA COMPARISON: 2014- 2017 EXAM PARAMETERS: Standard craniocaudal and mediolateral oblique views of each breast recorded using digital acquisition and breast tomosynthesis. Read with the assistance of CAD. .[facility] - [employer] Version 9.2 LIMITATIONS: None. FINDINGS: Findings present which are benign by mammographic criteria. No suspicious masses, calcific ations or architectural distortion. Pertinent benign findings: Left fibroadenoma. Benign mammographic findings may include one or more of the following: Smooth masses, popcorn/rim/coa rse calcifications, asymmetries, post-procedure changes, and lesions with long-standing stability. IMPRESSION: BENIGN MAMMOGRAPHIC FINDINGS. BIRADS 2 BREAST DENSITY: b. There are scattered areas of fibroglandular density. BIRAD: ASSESSMENT: 2 BENIGN FINDING(S) RECOMMENDATION: ROUTINE SCREENING COMMENT: The patient has been notified of the results by letter per SA requirements. Additional no tification policies are in place for contacting patient with suspicious or incomplete findings. Quality ID #225: The [employer] recommends an annual screening mammogram for women aged 40 years or over. This facility utilizes a reminder system to ensure that all patients receive reminder letters, and/or direct phone calls for appointments. This includes reminders for routine scr eening mammograms, diagnostic mammograms, or other Breast Imaging Interventions when appropriate. Th is patient will be placed in the appropriate reminder system. TECHNICAL DOCUMENTATION: FINDING NUMBER: (1) ASSESSMENT: (1) JOB ID: [id number] [employer]- All Rights Reserved Reading location - IP/workstation name: [email or web address]
== END ==
LOC: WI 07:07
PROVIDERS: ATTEND Obstetrics & Gynecology Gynecology
DX: Z12.31 Encounter for screening mammogram for malignant neoplasm of breast (principal)
CPT/HCPCS: 77063; 77067

== ENCOUNTER 2019-09-07 07:11 | Observation (INO) | payer OTHER ==
--- NOTE | 2019-09-07 08:04 | ER Document Report ---
ED General - General Chief Complaint: Chest Pressure Stated Complaint: CHEST PRESSURE Notes: 49-year-old female presents with chest pressure since this morning with some shortness of breath. No nausea no vomiting. No leg swelling. Recent Ortho surgery in the left leg, Achilles surgery. No history of clots. No stress test. Morbidly obese but no known diabetes history. TRAVEL OUTSIDE OF THE [place] IN LAST 30 DAYS: No - Related Data Allergies/Adverse Reactions: No Known Allergies Allergy (Verified 03/26/18 12:22) Past Medical History - Social History Smoking Status: Never Smoker Family History: Arthritis, DM, Hypertension, Malignancy - Past Medical History Cardiac Medical History: Reports: Hx Hypercholesterolemia, Hx Hypertension Denies: Hx Coronary Artery Disease, Hx Heart Attack Pulmonary Medical History: Denies: Hx Asthma, Hx Bronchitis, Hx COPD, Hx Pneumonia Neurological Medical History: Denies: Hx Cerebrovascular Accident, Hx Seizures Endocrine Medical History: Reports: Hx Hypothyroidism Renal/ Medical History: Denies: Hx Peritoneal Dialysis Musculoskeletal Medical History: Reports Hx Arthritis Skin Medical History: Reports Hx Psoriasis Past Surgical History: Reports: Hx Cholecystectomy, Hx Orthopedic Surgery - Multiple knee surgeries - Immunizations Hx Diphtheria, Pertussis, Tetanus Vaccination: Yes Review of Systems - Review of Systems Notes: REVIEW OF SYSTEMS GEN: Denies fever, chills, weight loss ENT: Denies sore throat, nasal discharge, ear pain EYES: Denies blurry vision, eye pain, discharge CV: Chest pain RESP: Denies cough, shortness of breath, wheezing GI: Denies abdominal pain, nausea, vomiting, diarrhea MSK: Denies joint pain/swelling, edema, SKIN: Denies rash, skin lesions LYMPH: Denies swollen glands/lymph nodes NEURO: Denies headache, focal weakness or numbness, dizziness PSYCH: Denies depression, suicidal or homicidal ideation PHYSICAL EXAMINATION General: No acute distress, well-nourished Head: Atraumatic, normocephalic ENT: Mouth normal, oropharynx moist, no exudates or tonsillar enlargement Eyes: Conjunctiva normal, pupils equal, lids normal Neck: No JVD, supple, no guarding CVS: Normal rate, regular rhythm, no murmurs Resp: No resp distress, equal and normal breath sounds bilaterally GI: Nondistended, soft, no tenderness to palpation, no rebound or guarding Ext: No deformities, no edema, normal range of motion in upper and lower ext Back: No CVA or midline TTP Skin: No rash, warm Lymphatic: No lymphadeopathy noted Neuro: Awake, alert. Face symmetric. GCS 15. Physical Exam - Vital signs Vitals: Temp Pulse Resp BP Pulse Ox 98.0 F 81 18 148/84 H 96 09/07/19 07:23 09/07/19 07:23 09/07/19 07:23 09/07/19 07:23 09/07/19 07:23 Course - Re-evaluation Re-evalutation: 09/07/19 12:37 Chest pain concerning both for ACS and PE given risk factors. EKG is unremarkable. Troponin is negative. Given nitroglycerinslightly better. CT PE, although suboptimal is read negative. Discussed with hospitalist for admission. - Vital Signs Vital signs: Temp Pulse Resp BP Pulse Ox 98.0 F 81 15 144/83 H 100 09/07/19 07:23 09/07/19 07:23 09/07/19 09:00 09/07/19 08:03 09/07/19 09:00 - Laboratory Result Diagrams: 09/07/19 09:01 09/07/19 09:01 Laboratory results interpreted by me: 09/07/19 09/07/19 09:01 09:01 RDW 15.2 H Glucose 122 H - Diagnostic Test Radiology reviewed: Image reviewed, Reports reviewed - EKG Interpretation by Nc EKG shows normal: Sinus rhythm Rate: Normal Rhythm: NSR Discharge - Discharge Clinical Impression: Chest pain, precordial Condition: Good Disposition: ADMITTED OBSERVATION Admitting Provider: Karina (Hospitalist) Unit Admitted: Medical Floor
[2019-09-07 09:17] LABS: ABSOLUTE EOSINOPHILS # (AUTO) 0.1 10^3/uL (0.0-0.6); ABSOLUTE LYMPHOCYTES (AUTO) 2.4 10^3/uL (0.5-4.7); ABSOLUTE MONOCYTES (AUTO) 0.5 10^3/uL (0.1-1.4); ABSOLUTE NEUT (AUTO) 4.1 10^3/uL (1.7-8.2); BASOPHILS % (AUTO) 0.5 % (0-2); EOSINOPHILS % (AUTO) 1.1 % (0-6); HEMATOCRIT 40.7 % (36.0-47.0); HEMOGLOBIN 13.8 g/dL (12.0-15.5); LYMPHOCYTES % (AUTO) 33.8 % (13-45); MEAN CORPUSCULAR HEMOGLOBIN 29.6 pg (27.0-33.4); MEAN CORPUSCULAR HGB CONC 33.8 g/dL (32.0-36.0); MEAN CORPUSCULAR VOLUME 88 fl (80-97); MONOCYTES % (AUTO) 7.6 % (3-13); PLATELET COUNT 272 10^3/uL (150-450); RED BLOOD COUNT 4.65 10^6/uL (3.72-5.28); RED CELL DISTRIBUTION WIDTH 15.2 % (11.5-14.0); TOTAL CELLS COUNTED % (AUTO) 100 %; WHITE BLOOD COUNT 7.2 10^3/uL (4.0-10.5)
[2019-09-07 09:43] LABS: ANION GAP 7 (5-19); BLOOD UREA NITROGEN 18 mg/dL (7-20); CALCIUM 9.2 mg/dL (8.4-10.2); CARBON DIOXIDE 29 mmol/L (22-30); CHLORIDE 102 mmol/L (98-107); GLUCOSE 122 mg/dL (75-110); POTASSIUM 4.6 mmol/L (3.6-5.0)
--- NOTE | 2019-09-07 10:04 | EKG REPORT ---
SEVERITY:- NORMAL ECG - SINUS RHYTHM : Confirmed by: Holden Blankenship 07-Sep-2019 10:04:10
--- NOTE | 2019-09-07 10:20 | RADIOLOGY REPORT (SQ) ---
EXAM DESCRIPTION: CTA CHEST COMPLETED DATE/TIME: 09/07/2019 10:04 am REASON FOR STUDY: Pleuritic chest pain recent Ortho surgery COMPARISON: None. TECHNIQUE: CT scan of the chest performed using helical scanning technique with dynamic intravenous contrast injection. Images reviewed with lung, soft tissue and bone windows. Reconstructed coronal and sagittal MPR images reviewed. Additional 3 dimensional post-processing performed to develop Maximal Intensity Projection images (MD P). All images stored on PACS. All CT scanners at this facility use dose modulation, iterative reconstruction, and/or weight based d osing when appropriate to reduce radiation dose to as low as reasonably achievable (ALARA). [facility]: Dose Right [facility]: CareDose [facility]: Dose Right [facility]: Teradose 4D [facility]: [place] CONTRAST TYPE AND DOSE: contrast/concentration: Isovue 350.00 mg/ml; Total Contrast Delivered: 68.0 ml; Total Saline Delivered: 80.0 ml Contrast bolus adequate for pulmonary arteries and aorta. RENAL FUNCTION: None required. The patient is less than 50 years old. RADIATION DOSE: CT Rad equipment meets quality standard of care and radiation dose reduction techniq ues were employed. CTDIvol: 15.6 - 16.9 mGy. DLP: 668 mGy-cm. . LIMITATIONS: None. FINDINGS: LUNGS AND PLEURA: No masses, infiltrates, or pneumothorax. No pleural effusions or pleura l calcifications. AORTA AND GREAT VESSELS: No aneurysm. Contrast bolus not optimized for the aorta. HEART: No pericardial effusion. Scattered coronary atherosclerosis. Normal heart size. Normal right to left ventricular ratio. PULMONARY ARTERIES: No emboli visualized in the main pulmonary arteries or the segmental branches. HILAR AND MEDIASTINAL STRUCTURES: No identified masses or abnormal nodes. HARDWARE: None in the chest. UPPER ABDOMEN: Prior cholecystectomy. THYROID AND OTHER SOFT TISSUES: No masses. No adenopathy. BONES: No acute or significant finding. 3D MIPS: Confirm above findings. OTHER: No other significant finding. IMPRESSION: No evidence of pulmonary embolus or other acute intrathoracic process. COMMENT: Quality ID # [id number]: Final reports with documentation of one or more dose reduction techniques (e.g., Automated exposure control, adjustment of the mA and/or kV according to patient size, use of iterative reconstruction technique) TECHNICAL DOCUMENTATION: JOB ID: [id number] [employer]- All Rights Reserved Reading location - IP/workstation name: [email or web address]
[2019-09-07] MEDS ORDERED: MAG HYDROX/AL HYDROX/SIMETH SUSP 30 ML UDCUP PO PRN (11:48)
[2019-09-07] MEDS ORDERED: ONDANSETRON HCL INJ/PF 4 MG/2 ML SDV IV PRN (11:48)
[2019-09-07] MEDS ORDERED: VALSARTAN 160 MG TABLET PO ONE (11:55)
[2019-09-07] MEDS ORDERED: VERAPAMIL HCL 120 MG TABLET.SA PO ONE (11:55)
--- NOTE | 2019-09-07 12:08 | PDOC H&P ---
History of Present Illness Admission Date/PCP: 09/07/19 10:38 MICHAEL HOUSTON DO Patient complains of: Chest pain History of Present Illness: MALIA ROCHE is a 49 year old female with a history of hypertension, psoriatic arthritis, rheumatoid arthritis, who presents to the hospital with complains of crushing chest pain which started this morning at 6:45 AM. At that time patient was walking in her house while waiting for ride. Chest pain is substernal, worse on exertion but no sudden see if it improves with rest. Patient took an aspirin which helped mildly. Reported initial chest pain being a 10/10 without radiation. Mildly improved at the moment. Has a pleuritic component as well. Denies prior episodes. Denies history of heart disease or heart attacks. Denies any dyspnea. Denies recent URI, heavy lifting, strenuous physical activity involving the arms. Past Medical History Cardiac Medical History: Reports: Hypertension Denies: Coronary Artery Disease, Myocardial Infarction Pulmonary Medical History: Denies: Asthma, Bronchitis, Chronic Obstructive Pulmonary Disease (COPD), Pneumonia Neurological Medical History: Denies: Seizures Musculoskeltal Medical History: Reports: Arthritis Skin Medical History: Reports: Psoriasis Hematology: Denies: Anemia Past Surgical History Past Surgical History: Reports: Cholecystectomy, Orthopedic Surgery - Multiple knee surgeries Social History Information Source: Patient Lives with: Spouse/Significant other Smoking Status: Never Smoker Electronic Cigarette use?: No Frequency of Alcohol Use: Occasional Hx Recreational Drug Use: No Hx Prescription Drug Abuse: No - Advance Directive Resuscitation Status: Full Code Family History Family History: Arthritis, CAD - CAD in her father in his 60s, DM, Hypertension, Malignancy Parental Family History Reviewed: Yes Children Family History Reviewed: NA Sibling(s) Family History Reviewed.: Yes Medication/Allergy Home Medications: Adalimumab [Humira Pen] 40 mg [id number] 02/10/18 Valsartan/Hydrochlorothiazide [Diovan Hct 320-25 mg Tablet] 1 each PO DAILY 02/10/18 Verapamil HCl [Verapamil ER] 180 mg PO DAILY 02/10/18 Celecoxib [Celebrex] 200 mg PO PRN PRN 03/19/18 Allergies/Adverse Reactions: No Known Allergies Allergy (Verified 03/26/18 12:22) Review of Systems Constitutional: ABSENT: chills, fever(s), headache(s) Eyes: ABSENT: visual disturbances Nose, Mouth, and Throat: ABSENT: vertigo Cardiovascular: ABSENT: dyspnea on exertion Respiratory: ABSENT: cough, dyspnea Gastrointestinal: ABSENT: abdominal pain, nausea, vomiting Musculoskeletal: ABSENT: joint swelling Integumentary: PRESENT: diaphoresis Neurological: ABSENT: confusion Psychiatric: ABSENT: anxiety Endocrine: PRESENT: heat intolerance Allergic/Immunologic: PRESENT: seasonal rhinorrhea Physical Exam Vital Signs: Temp Pulse Resp BP Pulse Ox 98.0 F 81 15 144/83 H 100 09/07/19 07:23 09/07/19 07:23 09/07/19 09:00 09/07/19 08:03 09/07/19 09:00 General appearance: PRESENT: no acute distress, cooperative Neck exam: ABSENT: JVD Respiratory exam: PRESENT: clear to auscultation magdy, symmetrical, unlabored. ABSENT: tachypnea, wheezes Cardiovascular exam: PRESENT: RRR, +S1, +S2. ABSENT: irregular rhythm, tachycardia GI/Abdominal exam: PRESENT: normal bowel sounds, soft. ABSENT: rebound, rigid, tenderness Extremities exam: PRESENT: pedal edema - Trace Neurological exam: PRESENT: alert, awake, oriented to person, oriented to place, oriented to time, oriented to situation Results Laboratory Results: 09/07/19 09:01 09/07/19 09:01 09/07/19 09/07/19 09:01 09:01 WBC 7.2 RBC 4.65 Hgb 13.8 Hct 40.7 MCV 88 MCH 29.6 MCHC 33.8 RDW 15.2 H Plt Count 272 Seg Neutrophils % 57.0 Sodium 137.8 Potassium 4.6 Chloride 102 Carbon Dioxide 29 Anion Gap 7 BUN 18 Creatinine 0.83 Est GFR ( Amer) > 60 Glucose 122 H Calcium 9.2 09/07/19 09:01 Troponin I < 0.012 Impressions: Chest/Abdomen CTA 09/07/19 08:04 IMPRESSION: No evidence of pulmonary embolus or other acute intrathoracic process. Assessment and Plan - Diagnosis (1) Atypical chest pain Is this a current diagnosis for this admission?: Yes Plan: EKG shows no ST elevation, depressions and no significant T wave abnormalities good R wave progression. No ischemia noted. Trend troponins x3. First 1-. Heart score of 3. Will check hemoglobin A1c and lipid panel to help with stratification. Trial of nitroglycerin Monitor on telemetry CTA shows no evidence of cardiopulmonary disease (2) Hypertension Qualifiers: Hypertension type: essential hypertension Qualified Code(s): I10 - Essential (primary) hypertension Is this a current diagnosis for this admission?: Yes Plan: Continue valsartan and verapamil (3) Psoriatic arthritis Is this a current diagnosis for this admission?: Yes Plan: Tylenol as needed pain. Takes Humira every 2 weeks. (4) Morbid obesity Is this a current diagnosis for this admission?: Yes Plan: Check lipid panel and hemoglobin A1c. - Time Time Spent with patient: 35 or more minutes
[2019-09-07] MEDS: NITROGLYCERIN 0.4 MG/TAB 25 TAB/BOTTLE SL PRN ×3 (12:11→17:31)
[2019-09-07] MEDS: ACETAMINOPHEN 325 MG TABLET PO PRN ×2 (12:42→17:31)
[2019-09-07] MEDS ORDERED: DEXTROSE 40% GEL 15 GM TUBE PO PRN ×2 (18:34)
[2019-09-07] MEDS ORDERED: DEXTROSE 50%-WATER 25 GM/50 ML DISP.SYRIN IV PRN ×2 (18:34)
[2019-09-07] MEDS ORDERED: GLUCAGON,HUMAN RECOMB 1 MG INJ SUBCUT PRN (18:34)
[2019-09-08 05:39] LABS: CHOLESTEROL 210.89 mg/dL (0-200); TRIGLYCERIDES 119 mg/dL (<150)
[2019-09-08 05:50] LABS: DIRECT LDL 138 mg/dL (<100)
[2019-09-08] MEDS ORDERED: VALSARTAN 160 MG TABLET PO SCH (10:00)
[2019-09-08] MEDS ORDERED: VERAPAMIL HCL 120 MG TABLET.SA PO SCH (10:00)
[2019-09-08] MEDS ORDERED: ENOXAPARIN SODIUM INJ 40 MG/0.4 ML DISP.SYRIN SUBCUT SCH (10:00)
--- NOTE | 2019-09-08 11:54 | PDOC DISCHARGE SUMMARY ---
Impression - Admit/DC Date/PCP Admission Date/Primary Care Provider: 09/07/19 10:38 MICHAEL HOUSTON, Discharge Date: 09/08/19 - Discharge Diagnosis (1) Atypical chest pain Is this a current diagnosis for this admission?: Yes (2) Hypertension Is this a current diagnosis for this admission?: Yes (3) Psoriatic arthritis Is this a current diagnosis for this admission?: Yes (4) Morbid obesity Is this a current diagnosis for this admission?: Yes (5) Prediabetes Is this a current diagnosis for this admission?: Yes (6) Dyslipidemia Is this a current diagnosis for this admission?: Yes - Assessment Summary: Patient was admitted for evaluation of new onset chest pain. Vitals were hemodynamically stable. EKG was performed and reviewed by me which showed no e vidence of ischemic disease. Troponins were trended x3 which were all negative. Of note a CTA of the chest was done in the ER prior to admission which showed no evidence of pulmonary embolism and was completely clear. Today, patient is chest pain-free. Patient was risk stratified with lipid panel measured showing total cholesterol of 210 and HDL of 52 with LDL of 138, hemoglobin A1c of 6 indicating prediabetes for which patient was counseled on lifestyle modifications. Patient's ASCVD 10-year risk has been calculated to be 2.1% and as such statin is not required. Patient's HEART score is 4. As chest pain is resolved, patient is stable for discharge at this time and has been referred to follow-up with Dr. Barahona for further risk stratification and to see if stress test is needed. At this point, there is no need for urgent stress test. - Additional Information Resuscitation Status: Full Code Discharge Diet: Regular, Other (Comments) - Low carbohydrate diet Discharge Activity: Activity As Tolerated Referrals: JAILENE BARAHONA MD [ACTIVE STAFF] - Prescriptions: Nitroglycerin [Nitrostat 0.4 mg (1/150 Gr) Tabs 25/Bottle] 1 tab SL Q5MP PRN #1 bottle PRN Reason: Home Medications: Adalimumab [Humira Pen] 40 mg [id number] 02/10/18 Valsartan/Hydrochlorothiazide [Diovan Hct 320-25 mg Tablet] 1 each PO DAILY 02/10/18 Verapamil HCl [Verapamil ER] 180 mg PO DAILY 02/10/18 Acetaminophen [Tylenol 325 mg Tablet] 650 mg PO Q4HP PRN tablet 09/08/19 Nitroglycerin [Nitrostat 0.4 mg (1/150 Gr) Tabs 25/Bottle] 1 tab SL Q5MP PRN #1 bottle 09/08/19 History of Present Illiness History of Present Illness: MALIA ROCHE is a 49 year old female with a history of hypertension, psoriatic arthritis, rheumatoid arthritis, who presents to the hospital with complains of crushing chest pain which started this morning at 6:45 AM. At that time patient was walking in her house while waiting for ride. Chest pain is substernal, worse on exertion but no sudden see if it improves with rest. Patient took an aspirin which helped mildly. Reported initial chest pain being a 10/10 without radiation. Mildly improved at the moment. Has a pleuritic component as well. Denies prior episodes. Denies history of heart disease or heart attacks. Denies any dyspnea. Denies recent URI, heavy lifting, strenuous physical activity involving the arms. Physical Exam Vital Signs: Temp Pulse Resp BP Pulse Ox 98.2 F 77 18 121/76 98 09/08/19 08:00 09/08/19 08:00 09/08/19 08:00 09/08/19 08:00 09/08/19 08:00 Intake & Output 09/07/19 09/08/19 09/09/19 06:59 06:59 06:59 Intake Total 520 Balance 520 Weight 137.8 kg General appearance: PRESENT: no acute distress, cooperative Respiratory exam: PRESENT: clear to auscultation magdy Cardiovascular exam: PRESENT: +S1, +S2 Results Laboratory Results: WBC 7.2 10^3/uL (4.0-10.5) 09/07/19 09:01 RBC 4.65 10^6/uL (3.72-5.28) 09/07/19 09:01 Hgb 13.8 g/dL (12.0-15.5) 09/07/19 09:01 Hct 40.7 % (36.0-47.0) 09/07/19 09:01 MCV 88 fl (80-97) 09/07/19 09:01 MCH 29.6 pg (27.0-33.4) 09/07/19 09:01 MCHC 33.8 g/dL (32.0-36.0) 09/07/19 09:01 RDW 15.2 % (11.5-14.0) H 09/07/19 09:01 Plt Count 272 10^3/uL (150-450) 09/07/19 09:01 Lymph % (Auto) 33.8 % (13-45) 09/07/19 09:01 [place] % (Auto) 7.6 % (3-13) 09/07/19 09:01 Eos % (Auto) 1.1 % (0-6) 09/07/19 09:01 Baso % (Auto) 0.5 % (0-2) 09/07/19 09:01 Absolute Neuts (auto) 4.1 10^3/uL (1.7-8.2) 09/07/19 09:01 Absolute Lymphs (auto) 2.4 10^3/uL (0.5-4.7) 09/07/19 09:01 Absolute Monos (auto) 0.5 10^3/uL (0.1-1.4) 09/07/19 09:01 Absolute Eos (auto) 0.1 10^3/uL (0.0-0.6) 09/07/19 09:01 Absolute Basos (auto) 0.0 10^3/uL (0.0-0.2) 09/07/19 09:01 Seg Neutrophils % 57.0 % (42-78) 09/07/19 09:01 Sodium 137.8 mmol/L (137-145) 09/07/19 09:01 Potassium 4.6 mmol/L (3.6-5.0) 09/07/19 09:01 Chloride 102 mmol/L (98-107) 09/07/19 09:01 Carbon Dioxide 29 mmol/L (22-30) 09/07/19 09:01 Anion Gap 7 (5-19) 09/07/19 09:01 BUN 18 mg/dL (7-20) 09/07/19 09:01 Creatinine 0.83 mg/dL (0.52-1.25) 09/07/19 09:01 Est GFR ( Amer) > 60 (>60) 09/07/19 09:01 Est GFR (MDRD) Non-Af > 60 (>60) 09/07/19 09:01 Glucose 122 mg/dL (75-110) H 09/07/19 09:01 Hemoglobin A1c % 6.0 % (4.7-6.0) 09/08/19 04:06 Calcium 9.2 mg/dL (8.4-10.2) 09/07/19 09:01 Troponin I < 0.012 ng/mL 09/07/19 15:57 Triglycerides 119 mg/dL (<150) 09/08/19 04:06 Cholesterol 210.89 mg/dL (0-200) H 09/08/19 04:06 LDL Cholesterol Direct 138 mg/dL (<100) H 09/08/19 04:06 VLDL Cholesterol 24.0 mg/dL (10-31) 09/08/19 04:06 HDL Cholesterol 52 mg/dL (>40) 09/08/19 04:06 09/07/19 09/07/19 09/07/19 09:01 12:45 15:57 Troponin I < 0.012 < 0.012 < 0.012 Impressions: Chest/Abdomen CTA 09/07/19 08:04 IMPRESSION: No evidence of pulmonary embolus or other acute intrathoracic process. Plan Time Spent: Less than 30 Minutes Stroke Is this a Stroke Patient?: No Acute Heart Failure - Is this a Heart Failure Patient?: No
[2019-09-08 13:14] VITALS: BP 156/71
--- NOTE | 2019-09-08 22:28 | EKG REPORT ---
SEVERITY:- NORMAL ECG - SINUS RHYTHM : Confirmed by: Holden Blankenship 08-Sep-2019 22:27:28
== END 2019-09-08 13:40 | disposition home or self-care (01) ==
LOC: ER 07:11 → EH 10:38 → 5 20:42
PROVIDERS: ADMIT Internal Medicine; ATTEND Internal Medicine
DX: R07.89 Other chest pain (principal); I10 Essential (primary) hypertension; L40.50 Arthropathic psoriasis, unspecified; E66.01 Morbid (severe) obesity due to excess calories; R73.03 Prediabetes; E78.5 Hyperlipidemia, unspecified; M06.9 Rheumatoid arthritis, unspecified; R61 Generalized hyperhidrosis; R06.02 Shortness of breath; Z79.899 Other long term (current) drug therapy; Z82.49 Family history of ischemic heart disease and other diseases of the circulatory system
CPT/HCPCS: 93005 ×2; 99285; 36415 ×2; 85025; 80048; 84484; 83036; 80061; 71275; 93010 ×2; G0378 ×3; J3490

== ENCOUNTER → 2020-08-30 | Outpatient (CLI) | payer OTHER ==
[2020-08-30 16:31] LABS: ABSOLUTE BASOPHILS # (AUTO) 0.1 10^3/uL (0.0-0.2); ABSOLUTE EOSINOPHILS # (AUTO) 0.2 10^3/uL (0.0-0.6); ABSOLUTE LYMPHOCYTES (AUTO) 3.4 10^3/uL (0.5-4.7); ABSOLUTE MONOCYTES (AUTO) 0.9 10^3/uL (0.1-1.4); BASOPHILS % (AUTO) 0.5 % (0-2); EOSINOPHILS % (AUTO) 1.3 % (0-6); HEMATOCRIT 39.5 % (36.0-47.0); HEMOGLOBIN 13.7 g/dL (12.0-15.5); LYMPHOCYTES % (AUTO) 29.9 % (13-45); MEAN CORPUSCULAR HEMOGLOBIN 30.1 pg (27.0-33.4); MEAN CORPUSCULAR HGB CONC 34.6 g/dL (32.0-36.0); MEAN CORPUSCULAR VOLUME 87 fl (80-97); MONOCYTES % (AUTO) 7.5 % (3-13); PLATELET COUNT 263 10^3/uL (150-450); RED BLOOD COUNT 4.54 10^6/uL (3.72-5.28); RED CELL DISTRIBUTION WIDTH 13.8 % (11.5-14.0); SEGMENTED NEUTROPHILS % (AUTO) 60.8 % (42-78); TOTAL CELLS COUNTED % (AUTO) 100 %; WHITE BLOOD COUNT 11.4 10^3/uL (4.0-10.5)
[2020-08-30 17:04] LABS: ALBUMIN 3.7 g/dL (3.5-5.0); ALKALINE PHOSPHATASE 77 U/L (38-126); ANION GAP 6 (5-19); ASPARTATE AMINO TRANSFERASE 18 U/L (14-36); BILIRUBIN,DIRECT 0.1 mg/dL (0.0-0.4); BILIRUBIN,TOTAL 0.9 mg/dL (0.2-1.3); BLOOD UREA NITROGEN 13 mg/dL (7-20); CALCIUM 9.1 mg/dL (8.4-10.2); CARBON DIOXIDE 29 mmol/L (22-30); CHLORIDE 102 mmol/L (98-107); GLUCOSE 105 mg/dL (75-110); POTASSIUM 4.5 mmol/L (3.6-5.0); TOTAL PROTEIN 6.9 g/dL (6.3-8.2)
--- NOTE | 2020-08-31 08:28 | RADIOLOGY REPORT (SQ) ---
EXAM DESCRIPTION: CT ABD/PELVIS WITH IV ORAL IMAGES COMPLETED DATE/TIME: 08/30/2020 7:28 pm REASON FOR STUDY: DIVERTICULITIS W/O HEM K57.32 DVTRCLI OF LG INT W/O PERFORATION OR ABSCESS W/O BL EE COMPARISON: CT dated 02/10/2018 TECHNIQUE: CT scan of the abdomen and pelvis performed using helical scanning technique with dynamic intravenous contrast injection. No oral contrast. Images reviewed with lung, soft tissue, and bone windows. Reconstructed coronal and sagittal MPR images reviewed. Delayed images for evaluation of the urinary system also acquired. All images stored on PACS. All CT scanners at this facility use dose modulation, iterative reconstruction, and/or weight based d osing when appropriate to reduce radiation dose to as low as reasonably achievable (ALARA). [facility]: Dose Right [facility]: CareDose [facility]: Dose Right [facility]: Teradose 4D [facility]: [place] CONTRAST TYPE AND DOSE: contrast/concentration: Isovue 350.00 mmol/ml; Total Contrast Delivered: 100 .0 ml; Total Saline Delivered: 43.1 ml RENAL FUNCTION: Creatinine 0.7 RADIATION DOSE: CT Rad equipment meets quality standard of care and radiation dose reduction techniq ues were employed. CTDIvol: 19.2 - 21.1 mGy. DLP: 2407 mGy-cm.. LIMITATIONS: None. FINDINGS: LOWER CHEST: No significant findings. No nodules or infiltrates. LIVER: Normal size. No masses. Decreased attenuation consistent with steatosis. SPLEEN: Normal size. No focal lesions. PANCREAS: No masses. No significant calcifications. No adjacent inflammation or peripancreatic fluid collections. Pancreatic duct not dilated. GALLBLADDER: Surgically absent. ADRENAL GLANDS: No significant masses or asymmetry. 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 N o significant calcifications. No hydronephrosis or hydroureter. LEFT KIDNEY AND URETER: No solid masses. No significant calcifications. No hydronephrosis or hydr oureter. AORTA AND VESSELS: No aneurysm. No dissection. Renal arteries, SMA, celiac without stenosis. RETROPERITONEUM: No retroperitoneal adenopathy, hemorrhage or masses. BOWEL AND PERITONEAL CAVITY: Inflammation surrounding the descending colon. There is bowel wall thic kening involving the descending colon as well. This extends into the proximal sigmoid. Findings are nonspecific but most likely represent infectious or ischemic colitis. Occasional diverticulum is de monstrated but none in the involved segment of colon. APPENDIX: Normal. PELVIS: No mass. No free fluid. Normal bladder. ABDOMINAL WALL: No masses. No hernias. BONES: Postsurgical changes in the spine. OTHER: No other significant finding. IMPRESSION: Thickening of the descending colonic wall with surrounding inflammation. Findings are c onsistent with colitis. This could be infectious or inflammatory. No focal abscess or free air. TECHNICAL DOCUMENTATION: JOB ID: [id number] Quality ID # [id number]: Final reports with documentation of one or more dose reduction techniques (e.g., Au tomated exposure control, adjustment of the mA and/or kV according to patient size, use of iterative reconstruction technique) 2010 [employer]- All Rights Reserved Reading location - IP/workstation name: [email or web address]
== END ==
LOC: RAD 16:09
PROVIDERS: ATTEND Internal Medicine Gastroenterology
DX: K57.32 Diverticulitis of large intestine without perforation or abscess without bleeding (principal)
CPT/HCPCS: 36415; 74177; 80048; 80076; 82565; 85025